=== PATIENT | male | born 1965 | race Caucasian/White ===

== ENCOUNTER 2020-05-12 13:12 | Outpatient (CLI) | payer OTHER, SELFPAY ==
--- NOTE | 2020-05-12 13:17 | MM_ITS ---
WS: [id number] DIAGNOSTIC BILATERAL DIGITAL MAMMOGRAM WITH CAD Bilateral breast ultrasound. Limited. HISTORY: 2 LUMPS RT BREAST;1 LUMP LT BREAST COMPARISON: None available. TECHNIQUE: Bilateral craniocaudad, mediolateral oblique, and mediolateral views are submitted. Spot c ompression RIGHT MLO and LEFT MLO. Computer aided detection utilized. Breast composition: The breasts are almost entirely fatty. No evidence for gynecomastia. There are ve ry small superficial nodules in the upper outer quadrant of the RIGHT breast corresponding to one of the palpable markers. Within the medial RIGHT breast there is no abnormality corresponding to the pal pable marker. No abnormality corresponding to the LEFT breast marker. No lymph nodes. Bilateral breast ultrasound, limited. RIGHT breast: No ultrasound abnormality at 4:00, 2 cm from the nipple. In the RIGHT breast at 8:00 i s a hyperechoic nodule consistent with a lipoma measuring 1.5 x 1.5 x 0.8 cm. LEFT breast: No abnormality at 5:00 corresponding to the area of interest or palpable abnormality. MM/[place] [id number] IMPRESSION: BI-RADS: 2-Benign FOLLOW UP: See Report No suspicious findings are evident. LACK OF RADIOGRAPHIC EVIDENCE OF MALIGNANCY SHOULD NOT DELAY BIOPSY IF A CLINIC ALLY SUSPICIOUS MASS IS PRESENT.
== END 2020-05-12 13:13 | disposition home or self-care (01) ==
LOC: RADSHAW 13:16
PROVIDERS: Family Provider Family Medicine; PCP Family Medicine; Visit Provider Family Medicine
DX: N63.13 Unspecified lump in the right breast, lower outer quadrant (principal); N63.20 Unspecified lump in the left breast, unspecified quadrant
CPT/HCPCS: 76642; 77066

== ENCOUNTER → 2020-07-28 12:00 | Outpatient (BNVA) | payer OTHER, SELFPAY | PROVIDERS: Family Provider Family Medicine; PCP Family Medicine; Visit Provider Surgery | DX: Z01.818 Encounter for other preprocedural examination (principal); Z20.822 Contact with and (suspected) exposure to COVID-19 | CPT/HCPCS: 87635 ==

== ENCOUNTER 2020-08-02 06:45 | Day surgery (SDC) | payer OTHER, SELFPAY ==
[2020-07-31 09:59] VITALS: BMI 34.8
--- NOTE | 2020-08-02 06:58 | ANES.PREANE2 ---
Pre-Anesthetic Assessment Pre-Anesthetic Assessment: Height/Weight: Height 1.8 m Weight 113.398 kg Proposed Procedure: Operation Date: 08/02/20 08:00 Proposed Procedures p EGD/colon 07856 [id number] Z79.899 K62.5(Not Applicable) - Roberto Carlos Fair MD s Colonoscopy(Not Applicable) - Roberto Carlos Fair MD Was Beta Woodrow taken within 24 hours: N/A Was Clonidine taken within 24 hours: N/A Social: Social History: No alcohol and No tobacco Exam: Pre-Anes Outpt Exam: alert, oriented x 3, clear to auscultation bilaterally and regular rate & rhythm Airway: Submandibular: WNL Cervical ROM: WNL MP: 2 Dentition: Full CV/HEM: CV/HEM: HTN GI: GI: GERD Anesthetic Plan: ASA status: 2 Anesthesia: MAC Risk of > 500 ml blood loss (7ml/kg in children): No Data Anesthesia Cardiac Studies: No Data to Display
[2020-08-02] MEDS: sodium chloride 0.9% 1,000 ML 30 ML IV (07:31)
[2020-08-02 07:38] VITALS: BP 126/80; RESP 18; TEMP 36.1; O2SAT 95
--- NOTE | 2020-08-02 07:54 | P.HP_ITS ---
Same Day Surgery H&P Indication for Procedure/HPI DATE OF PROCEDURE: August 02, 2020 CHIEF COMPLAINT/INDICATIONFOR SURGICAL PROCEDURE: Blood in stool PREOP DIAGNOSIS: Bleeding per rectum PLANNED PROCEDRUE: Operation Date: 08/02/20 08:00 Proposed Procedures p EGD/colon 33212 [id number] Z79.899 K62.5(Not Applicable) - Roberto Carlos Fair MD s Colonoscopy(Not Applicable) - Roberto Carlos Fair MD This is a pleasant 55 years old gentleman presents with history of intermittent bleeding per rectum, patient does have also persistent acid reflux and has been on PPI therapy for the past 2 years or so, never had endoscopies before never had a colonoscopy before. Denies history of weight loss or colon cancer. Patient is referred to me for further evaluation and he did mention to me that he has other spots on his breast and torso that has been tender every now and then. Interim history 08/02/2020 Patient comes today for EGD and colonoscopy ROS All systems have been reviewed negative except as per the above or per problem list Medications/Allergies* Home Medications Medication Instructions Recorded Confirmed Type cholecalciferol (vitamin D3) 25 25 mcg PO DAILY 06/12/20 08/02/20 History mcg (1,000 unit) capsule lisinopril 10 mg tablet 5 mg PO DAILY tab 06/12/20 08/02/20 History omeprazole 40 mg capsule,delayed 40 mg PO DAILY 06/12/20 08/02/20 History release Allergies/Adverse Reactions Allergy/AdvReac Type Severity Reaction Status Date / Time No Known Allergies Allergy Verified 08/02/20 07:58 Current Medications: Generic Name Dose Route Start Last Admin Trade Name Nickq PRN Reason Stop Dose Admin Sodium Chloride 1,000 mls @ 30 mls/hr 08/02/20 07:15 08/02/20 07:31 Sodium Chloride 0.9% IV 08/03/20 07:14 30 mls/hr .Q24H PERLA Administration Pertinent Exam Findings alert, oriented x 3, clear to auscultation bilaterally, regular rate & rhythm and procedure specific exam findings (Abdominal examination nontender nondistended soft with a BMI of 35) Recommendations Surgery/Procedure today (EGD and colonoscopy) Other Plans: Plan of care; After thorough history and physical examination and reviewing the chart, plan to perform a diagnostic esophagogastroduodenoscopy and diagnostic colonoscopy with possible biopsy and possible polypectomy. I discussed with the patient in detail the risks,benefits,alternatives and indications.The risk of aspiration, bleeding, soft tissue injury, perforation of the stomach/esophagus/colon and other potential concomitant complications were explained to the patient in details also the potential need for Thoracotomy and or Laproscoy/Laparotomy to repair any related complications including but not limited to colectomy and or Closotomy. The patient understood this well and did agree to proceed. Rationale was carefully and clearly discussed with the patient.Appropriate informed consent have been reviewed and signed Verbal and written Instructions were given to the patient for colonoscopy prep Coding Level of Care Code Acute Streetcar Dispatcher for Ej Ortega
[2020-08-02 09:02] VITALS: BP 99/72; PULSE 80; RESP 16; TEMP 36.2; O2SAT 95
[2020-08-02 09:12] VITALS: BP 108/79; PULSE 68; RESP 18; O2SAT 97
[2020-08-02 09:20] VITALS: BP 120/80; PULSE 65; RESP 18; TEMP 36; O2SAT 96
--- NOTE | 2020-08-02 13:57 | ANE.PACU2 ---
Inpatient post-anesthesia follow up: Airway intact: Yes Vital signs: Temperature 96.8 F Pulse Rate 65 Respiratory Rate 18 Blood Pressure 120/80 Pulse Oximetry 96 Oxygen Delivery Me thod Room Air Oxygen Flow Rate 2 Fraction of Inspir ed Oxygen Hydration adequate: Yes Nausea and vomiting: No Pain level: 1 Mental status: Baseline
== END 2020-08-02 09:50 | disposition home or self-care (01) ==
PROVIDERS: PCP Family Medicine; Visit Provider Surgery
PROC: 0DJ08ZZ Inspection of Upper Intestinal Tract, Via Natural or Artificial Opening Endoscopic (ICD-10-PCS; CPT 43235; principal; 2020-08-02 08:00)
PROC: 0DJD8ZZ Inspection of Lower Intestinal Tract, Via Natural or Artificial Opening Endoscopic (ICD-10-PCS; CPT 45378; 2020-08-02 08:00)
DX: K62.5 Hemorrhage of anus and rectum (principal); D12.2 Benign neoplasm of ascending colon; D12.4 Benign neoplasm of descending colon; D12.5 Benign neoplasm of sigmoid colon; D12.3 Benign neoplasm of transverse colon; K31.7 Polyp of stomach and duodenum; K21.9 Gastro-esophageal reflux disease without esophagitis; K22.70 Barrett's esophagus without dysplasia; I10 Essential (primary) hypertension
CPT/HCPCS: 43239; 45380; 45385; 88305; 96360; 96361; J2704; J7030

== ENCOUNTER 2021-03-03 12:41 | Emergency (ER) | payer OTHER, SELFPAY ==
[2021-03-03 13:02] VITALS: BP 166/90; PULSE 114; RESP 16; TEMP 38.8; O2SAT 91
--- NOTE | 2021-03-03 13:56 | XRR_ITS ---
PROCEDURE INFORMATION: Exam: XR Chest Exam date and time: 03/03/2021 1:56 PM Age: 56 years old Clinical indication: Shortness of breath; Additional info: Sob/cough TECHNIQUE: Imaging protocol: XR of the chest. Views: 1 view. COMPARISON: CT abdomen pelvis w con* [id number] 09/19/2017 5:20 PM FINDINGS: Lungs: Patchy bilateral airspace infiltrates. Pleural spaces: Unremarkable. No pleural effusion. No pneumothorax. Heart/Mediastinum: Unremarkable. No cardiomegaly. Bones/joints: Unremarkable. XR/XR chest 1V portable [id number] IMPRESSION: Patchy bilateral airspace infiltrates.
--- NOTE | 2021-03-03 14:30 | ED_ITS ---
HPI - COVID General: Chief Complaint: COVID symptoms Stated Complaint: Really hard time breathing with weakness Time Seen by Provider: 03/03/21 14:27 Triage information: Has fever, cough or shortness of breath . Exposure to COVID + person last 14 days History of Present Illness: HPI Narrative: 56-year-old male presents emergency room short of breath the last several days tested positive for Covid and was wanting to be scheduled for monoclonal antibodies. Myalgias diarrhea mild anosmia MD complaint: known COVID positive Prior testing date: 02/28/21 COVID 19 common symptoms: positive fever(s), chills, cough, non-productive cough, dyspnea, fatigue, body aches, headache(s), loss of sense of smell and/or taste, throat pain, nasal congestion and chest tightness; negative nausea, vomiting or diarrhea COVID 19 other sytmptoms: positive chest pressure and chest pain Onset (ago): day(s) (6) Severity: moderate Treatment prior to arrival: acetaminophen COVID Results: SARS-CoV-2 RNA (RT-PCR) Not detected (NOT DETECTED) 07/28/20 12:00 07/28/20 Review of Systems Const: Reports: fever(s), chills, body aches and fatigue ENMT: Reports: throat pain and nasal congestion Card: Reports: chest pain Resp: Reports: dyspnea and non-productive cough GI: Denies: abdominal pain, nausea, vomiting, hematemesis, coffee ground emesis, diarrhea, constipation, bloating, hematochezia or melena : Denies: flank pain, dysuria, urinary frequency or urinary urgency Skin/Breast: Denies: rash or pruritus Neuro: Reports: headache(s) PFSH ED PFSH: Medical History Adenomatous duodenal polyp Bleeding per rectum Colon polyps Esophagitis GERD (gastroesophageal reflux disease) HTN (hypertension) Surgical History History of appendectomy History of back surgery History of nasal surgery Previous back surgery Family History Grandfather IPF (idiopathic pulmonary fibrosis) Social History Smoking and tobacco status: never smoked Alcohol intake: never Marital status: Physical Exam Const: COMMON NORMALS: no acute distress GENERAL APPEARANCE: cooperative ORIENTATION/CONSCIOUSNESS: Yes awake, Yes oriented to person, Yes oriented to place and Yes oriented to time HENMT: COMMON NORMALS: normocephalic, atraumatic and hearing grossly normal bilaterally HEAD & SCALP: normocephalic and atraumatic Neck/C-Spine: COMMON NORMALS: no JVD Resp: AUSCULTATION: crackles and wheezes Cardio: COMMON NORMALS: no JVD, regular rate, regular rhythm and No murmurs present (Cardio) RATE: regular rate RHYTHM: regular rhythm GI: COMMON NORMALS: Soft to palpation and No hepatosplenomegaly present AUSCULTATION: Yes normoactive bowel sounds PALPATION: Yes Soft to palpation, No Tenderness to palpation present (GI), No Guarding due to palpation present (GI) and Yes No hepatosplenomegaly present Extremity: COMMON NORMALS: normal to inspection, capillary refill normal, no clubbing, cyanosis or edema, no calf tenderness and no pedal edema Neuro: SENSORIUM/ORIENTATION: Yes oriented to person, Yes oriented to place and Yes oriented to time Skin: COMMON NORMALS: no rashes or lesions noted GENERAL SKIN EXAM: no rashes or lesions noted Course Vital Signs: Vital signs: Vital Signs Temperature 99.4 F 03/03/21 16:41 Pulse Rate 93 03/03/21 16:41 Respiratory Rate 20 H 03/03/21 16:41 Blood Pressure 134/94 03/03/21 16:41 Pulse Oximetry 95 03/03/21 16:41 MDM - COVID MDM Narrative Medical decision making narrative: Patient tolerating well initially had a fever resolved improved with acetaminophen. Sats remained good at time of discharge 95% room air discharge home scheduled for outpatient monoclonal antibodies Lab Data Result diagrams: 03/03/21 15:05 03/03/21 15:05 Labs: Lab Results 03/03/21 03/03/21 03/03/21 15:05 15:05 15:05 WBC 7.7 10^3/uL 10^3/uL (4.0-10.0) RBC 5.20 10^6/uL 10^6/uL (4.1-5.3) Hgb 15.4 g/dL g/dL (11.7-16.6) Hct 45.8 % % (42.0-52.0) MCV 88.1 fl fl (80-94) MCH 29.6 pg pg (28.0-34.0) MCHC 33.6 g/dL g/dL (30.0-36.0) RDW 12.5 % % (12.1-15.1) Plt Count 249 10^3/cmm 10^3/cmm (130-400) MPV 9.6 fL fL (7.4-10.4) Neut % (Auto) 83.2 % % Lymph % (Auto) 9.9 % % [place] % (Auto) 5.8 % % Eos % (Auto) 0.3 % % Baso % (Auto) 0.3 % % Neut # (Auto) 6.37 10^3/uL 10^3/uL (1.8-7.7) Lymph # (Auto) 0.8 10^3/uL 10^3/uL (0.8-4.8) [place] # (Auto) 0.4 10^3/uL 10^3/uL (0.2-0.9) Eos # (Auto) 0.0 10^3/uL 10^3/uL (0.0-0.8) Baso # (Auto) 0.0 10^3/uL 10^3/uL (0.0-0.1) Nucleated RBC % (auto) 0 % % Nucleated RBCs # 0.0 /100WBC /100WBC D-Dimer 1.31 ug/mIFEU H ug/mIFEU (0-0.59) Sodium 137 mmol/L mmol/L (136-145) Potassium 4.3 mmol/L mmol/L (3.5-5.1) Chloride 100 mmol/L mmol/L (98-107) Carbon Dioxide 20 mmol/L L mmol/L (22-29) Anion Gap 21.3 H (5-19) BUN 14 mg/dL mg/dL (6-20) Creatinine 0.9 mg/dL mg/dL (0.7-1.2) GFR Calculation 87.0 mL/min L mL/min (90-130) Glucose 97 mg/dL mg/dL (65-115) Calculated Osmolality 284 mOsm/kg L mOsm/kg (285-295) Calcium 8.5 mg/dL mg/dL (8.5-10.5) Total Bilirubin 0.7 mg/dL mg/dL (0.15-1.2) AST 21 U/L U/L (0-40) ALT 15 U/L U/L (0-41) Alkaline Phosphatase 73 IU/L IU/L (40-130) C-Reactive Protein 66.3 mg/L H mg/L (0.0-4.9) Total Protein 7.2 g/dL g/dL (6.6-8.7) Albumin 3.9 g/dL g/dL (3.5-5.2) Globulin 3.3 g/dL g/dL (1.3-4.6) Procalcitonin 0.07 ng/mL ng/mL (0-0.5) COVID Results: SARS-CoV-2 RNA (RT-PCR) Not detected (NOT DETECTED) 07/28/20 12:00 07/28/20 Discharge Plan Discharge Patient Disposition: Home Clinical Impression: COVID-19 Condition: Stable Prescriptions: New albuterol sulfate 90 mcg/actuation HFA aerosol inhaler 2 inh INHALATION Q4H PRN (Reason: shortness of breath or wheezing) Qty: 18 0RF No Action cholecalciferol (vitamin D3) 25 mcg (1,000 unit) capsule 25 mcg PO DAILY 0RF lisinopril 10 mg tablet 5 mg PO DAILY 0RF doxycycline hyclate 100 mg capsule 100 mg PO BID 0RF Rx Instructions: X10 DAYS omeprazole 40 mg capsule,delayed release(DR/EC) 40 mg PO DAILY 0RF benzonatate 100 mg Capsule 200 mg PO TID 10 Days Qty: 60 1RF Decadron 6 mg tablet 6 mg PO DAILY Qty: 4 0RF codeine-guaifenesin 10-100 mg/5 mL Liquid 10 ml PO Q4H PRN (Reason: Cough) 14 Days Qty: 237 0RF Discharge Orders: Discharge ED (Routine); Ordered 03/03/21 Ordered By: Aubrey Cantor Referrals: Chelsie Santillan MD [Primary Care Provider] - Discharge Diet: Usual diet Discharge Activity: Increase activity as tolerated Patient Instructions: Opioid Safety Activity Restrictions/Additional Instructions: Case management will call to make arrangements for her to receive monoclonal antibodies. Monitor your home oxygen saturations with a pulse oximeter given to you today. If oxygen saturations are consistently below 90% while at rest return to the emergency room. Coding Level of Care Code ED Manager Administrative Services for Ej Ortega Exam Comprehensive
[2021-03-03 15:11] VITALS: BP 108/77; RESP 20; O2SAT 93
[2021-03-03 15:15] VITALS: O2SAT 93
[2021-03-03 15:18] LABS: Basophils % 0.3 %; Eosinophils % 0.3 %; Hematocrit 45.8 % (42.0-52.0); Hemoglobin 15.4 g/dL (11.7-16.6); Lymphocytes # 0.8 10^3/uL (0.8-4.8); Lymphocytes % 9.9 %; Mean Corpuscular HGB Conc 33.6 g/dL (30.0-36.0); Mean Corpuscular Hemoglobin 29.6 pg (28.0-34.0); Mean Corpuscular Volume 88.1 fl (80-94); Mean Platelet Volume 9.6 fL (7.4-10.4); Monocytes # 0.4 10^3/uL (0.2-0.9); Monocytes % 5.8 %; Neutrophils # 6.37 10^3/uL (1.8-7.7); Neutrophils % 83.2 %; Nucleated Red Blood Cells % 0 %; Platelet Count 249 10^3/cmm (130-400); Red Cell Distribution Width 12.5 % (12.1-15.1); White Blood Count 7.7 10^3/uL (4.0-10.0)
[2021-03-03] MEDS: acetaminophen 500 mg Tablet 1000 MG PO (15:26)
[2021-03-03 15:45] LABS: D Dimer 1.31 ug/mIFEU (0-0.59)
[2021-03-03 15:49] LABS: Alanine Aminotransferase 15 U/L (0-41); Albumin Level 3.9 g/dL (3.5-5.2); Alkaline Phosphatase 73 IU/L (40-130); Anion Gap 21.3 (5-19); Aspartate Amino Transferase 21 U/L (0-40); Blood Urea Nitrogen 14 mg/dL (6-20); C Reactive Protein 66.3 mg/L (0.0-4.9); Calcium 8.5 mg/dL (8.5-10.5); Carbon Dioxide 20 mmol/L (22-29); Chloride 100 mmol/L (98-107); Globulin 3.3 g/dL (1.3-4.6); Glucose 97 mg/dL (65-115); Osmolality Calculated 284 mOsm/kg (285-295); Potassium 4.3 mmol/L (3.5-5.1); Sodium 137 mmol/L (136-145); Total Bilirubin 0.7 mg/dL (0.15-1.2); Total Protein 7.2 g/dL (6.6-8.7)
[2021-03-03 15:55] LABS: Procalcitonin 0.07 ng/mL (0-0.5)
[2021-03-03 15:58] VITALS: O2SAT 92; O2SAT 94
[2021-03-03 16:41] VITALS: BP 134/94; PULSE 93; RESP 20; TEMP 37.4; O2SAT 95
== END 2021-03-03 16:42 | disposition home or self-care (01) ==
PROVIDERS: Emergency Provider Family Medicine; PCP Family Medicine
DX: U07.1 COVID-19 (principal); I10 Essential (primary) hypertension
CPT/HCPCS: 71045; 80053; 84145; 85025; 85378; 86140; 99283

== ENCOUNTER 2021-03-05 12:50 | Observation (INO) | payer OTHER, SELFPAY ==
[2021-03-05] VITALS (10 sets, daily range): BP systolic 117–145; BP diastolic 60–107; PULSE 71–130; RESP 18–32; TEMP 36.8–37.7; O2SAT 85–100; BMI 29.9
--- NOTE | 2021-03-05 13:17 | XR_ITS ---
WS: [id number] Exam: XR chest 1V portable [id number] Date/Time of Exam: 03/05/2021 1:53 PM Reason For Exam: dyspnea Comparison 03/03/2021. Patchy bilateral groundglass infiltrates are noted bilaterally slightly increased since previous stud y. The lungs are fully inflated. Normal cardiomediastinal silhouette and regional bony elements. XR/XR chest 1V portable [id number] IMPRESSION: 1. Patchy groundglass bilateral pulmonary infiltrates slightly increased since prior study.
--- NOTE | 2021-03-05 13:51 | ED_ITS ---
Documented by User: MARSHALL Duckworth 03/05/21 13:52 HPI - COVID General: Chief Complaint: COVID symptoms Stated Complaint: COVID + O2 85 Time Seen by Provider: 03/05/21 15:33 Triage information: Has fever, cough or shortness of breath . Exposure to COVID + person last 14 days History of Present Illness: HPI Narrative: Patient states that he has had a cough and tested positive for COVID earlier this week. Patient states he cannot get in for the infusion and that is what he is here for. Said he is on day 8 of symptoms and wants to make sure he gets infusion. Patient has been satting in the mid to low 90s on room air. COVID Results: SARS-CoV-2 RNA (RT-PCR) Not detected (NOT DETECTED) 07/28/20 12:00 07/28/20 [facility] PFSH: Medical History Adenomatous duodenal polyp Bleeding per rectum Colon polyps Esophagitis GERD (gastroesophageal reflux disease) Course Vital Signs: Vital signs: Vital Signs Pulse Rate 120 H 03/05/21 15:45 Respiratory Rate 32 H 03/05/21 15:45 Blood Pressure 131/89 03/05/21 15:45 Pulse Oximetry 91 03/05/21 15:45 MDM - COVID MDM Narrative: Medical decision making narrative: Brief history and physical exam was performed as part of the triage process. Due to current ED wait time patient will be placed in waiting room until a room becomes available. Explained to patient he/she will be seen in order of severity. Patient is currently safe to wait in the waiting room until we can get them placed. Patient informed that if condition worsens at any time to please let the commercial front load driver know. Lab Data: Labs: Lab Results 03/05/21 03/05/21 03/05/21 14:55 14:55 14:55 WBC 11.8 10^3/uL H 10 ^3/uL (4.0-10.0) RBC 5.13 10^6/uL 10^6 /uL (4.1-5.3) Hgb 15.0 g/dL g/dL (11.7-16.6) Hct 45.4 % % (42.0-52.0) MCV 88.5 fl fl (80-94) MCH 29.2 pg pg (28.0-34.0) MCHC 33.0 g/dL g/dL (30.0-36.0) RDW 12.4 % % (12.1-15.1) Plt Count 311 10^3/cmm 10^3 /cmm (130-400) MPV 9.7 fL fL (7.4-10.4) Neut % (Auto) 83.4 % % Lymph % (Auto) 10.3 % % [place] % (Auto) 4.3 % % Eos % (Auto) 1.0 % % Baso % (Auto) 0.3 % % Neut # (Auto) 9.82 10^3/uL H 10 ^3/uL (1.8-7.7) Lymph # (Auto) 1.2 10^3/uL 10^3/ uL (0.8-4.8) [place] # (Auto) 0.5 10^3/uL 10^3/ uL (0.2-0.9) Eos # (Auto) 0.1 10^3/uL 10^3/ uL (0.0-0.8) Baso # (Auto) 0.0 10^3/uL 10^3/ uL (0.0-0.1) Nucleated RBC % (a uto) 0 % % Nucleated RBCs # 0.0 /100WBC /100W BC D-Dimer 1.74 ug/mIFEU H u g/mIFEU (0-0.59) Specimen Type Sample Site ABG pH ABG pCO2 ABG pO2 ABG HCO3 ABG Base Excess Osei Test Hematocrit O2 Delivery Device FiO2 Veneer Trimmer ID Sodium 137 mmol/L mmol/L (136-145) Potassium 4.4 mmol/L mmol/L (3.5-5.1) Chloride 99 mmol/L mmol/L (98-107) Carbon Dioxide 21 mmol/L L mmol/ L (22-29) Anion Gap 21.4 H (5-19) BUN 14 mg/dL mg/dL (6-20) Creatinine 0.8 mg/dL mg/dL (0.7-1.2) GFR Calculation 99.6 mL/min mL/mi n (90-130) Glucose 110 mg/dL mg/dL (65-115) Calculated Osmolal ity 285 mOsm/kg mOsm/ kg (285-295) Lactic Acid Calcium 8.7 mg/dL mg/dL (8.5-10.5) Magnesium 1.9 mg/dL mg/dL (1.7-2.3) Total Bilirubin 0.5 mg/dL mg/dL (0.15-1.2) AST 16 U/L U/L (0-40) ALT 13 U/L U/L (0-41) Alkaline Phosphata se 70 IU/L IU/L (40-130) C-Reactive Protein 70.6 mg/L H mg/L (0.0-4.9) Total Protein 6.2 g/dL L g/dL (6.6-8.7) Albumin 3.9 g/dL g/dL (3.5-5.2) Globulin 2.3 g/dL g/dL (1.3-4.6) Procalcitonin 0.08 ng/mL ng/mL (0-0.5) 03/05/21 03/05/21 14:55 15:00 WBC RBC Hgb Hct MCV MCH MCHC RDW Plt Count MPV Neut % (Auto) Lymph % (Auto) [place] % (Auto) Eos % (Auto) Baso % (Auto) Neut # (Auto) Lymph # (Auto) [place] # (Auto) Eos # (Auto) Baso # (Auto) Nucleated RBC % (a uto) Nucleated RBCs # D-Dimer Specimen Type Arterial Sample Site Brachial, right ABG pH 7.50 H (7.35-7.45) ABG pCO2 30.9 mmHg L mmHg (35-45) ABG pO2 66.8 mmHg L mmHg (80.0-100.0) ABG HCO3 24.2 mmol/L mmol/ L (22-26) ABG Base Excess 1.9 mmol/L mmol/L (-2.0-2.0) Osei Test N/a Hematocrit 46.8 % % (42-52) O2 Delivery Device None FiO2 21.0 % % Veneer Trimmer ID Rieri Sodium Potassium Chloride Carbon Dioxide Anion Gap BUN Creatinine GFR Calculation Glucose Calculated Osmolal ity Lactic Acid 1.2 mmol/L mmol/L (0.5-2.2) Calcium Magnesium Total Bilirubin AST ALT Alkaline Phosphata se C-Reactive Protein Total Protein Albumin Globulin Procalcitonin COVID Results: SARS-CoV-2 RNA (RT-PCR) Not detected (NOT DETECTED) 07/28/20 12:00 07/28/20 Discharge Plan Discharge Patient Disposition: Admitted As Inpatient Clinical Impression: COVID, Hypoxemia, 2019 novel coronavirus-infected pneumonia (NCIP) Condition: Stable Coding Level of Care Code ED Backend Developer for [employer] Documented by User: Robert Iqbal MD 03/05/21 17:09 HPI - COVID General: Chief Complaint: COVID symptoms Stated Complaint: COVID + O2 85 Time Seen by Provider: 03/05/21 15:33 History of Present Illness: COVID 19 common symptoms: positive fever(s), chills, non-productive cough, dyspnea, fatigue and body aches; negative nausea, vomiting or diarrhea COVID 19 other sytmptoms: negative chest pain COVID Results: SARS-CoV-2 RNA (RT-PCR) Not detected (NOT DETECTED) 07/28/20 12:00 07/28/20 Review of Systems Const: Reports: fever(s), chills, body aches, fatigue and malaise Eyes: Denies: change in vision ENMT: Denies: mouth pain Card: Denies: chest pain or palpitations Resp: Reports: dyspnea and non-productive cough GI: Denies: abdominal pain, nausea, vomiting or diarrhea : Denies: dysuria Musc: Denies: extremity pain Skin/Breast: Denies: rash or new lesions Neuro: Denies: weakness in extremities Psych: Reports: other (Normal mood) Alexei/Lymph: Denies: easy bruising PFSH ED PFSH: Medical History Adenomatous duodenal polyp Bleeding per rectum Colon polyps Esophagitis GERD (gastroesophageal reflux disease) Physical Exam Const: COMMON NORMALS: alert HENMT: COMMON NORMALS: atraumatic HEAD & SCALP: atraumatic MOUTH: moist mucous membranes abnormal Eye: COMMON NORMALS: EOMs intact bilaterally and conjunctivae normal CONJUNCTIVA: Yes conjunctivae normal Neck/C-Spine: COMMON NORMALS: full ROM and supple Resp: COMMON NORMALS: normal respiratory effort PERCUSSION: other (coarse breath sounds b/l) Cardio: RATE: tachycardic GI: COMMON NORMALS: Soft to palpation and non-tender PALPATION: Yes Soft to palpation Extremity: COMMON NORMALS: full ROM Neuro: SENSORIUM/ORIENTATION: Yes alert MOTOR EXAM: No Abnormal motor strength present and Other motor observations present (no focal motor deficits) Psych: COMMON NORMALS: speech normal SPEECH: Yes normal speech MOOD & AFFECT: Yes euthymic mood Course Vital Signs: Vital signs: Vital Signs Pulse Rate 120 H 03/05/21 15:45 Respiratory Rate 32 H 03/05/21 15:45 Blood Pressure 131/89 03/05/21 15:45 Pulse Oximetry 91 03/05/21 15:45 MDM - COVID MDM Narrative: Medical decision making narrative: She is on 5 L at rest and 94%. On ambulation, patient required more than 10 L to get an O2 of 93%. X- rays consistent with COVID-pneumonia. Appears dry and mildly tachycardiac, will give IVF. No suspicion for bacteria PNA. Patient will be admitted to the hospital for hypoxemia in the setting of covid PNA. Lab Data: Labs: Lab Results 03/05/21 03/05/21 03/05/21 14:55 14:55 14:55 WBC 11.8 10^3/uL H 10 ^3/uL (4.0-10.0) RBC 5.13 10^6/uL 10^6 /uL (4.1-5.3) Hgb 15.0 g/dL g/dL (11.7-16.6) Hct 45.4 % % (42.0-52.0) MCV 88.5 fl fl (80-94) MCH 29.2 pg pg (28.0-34.0) MCHC 33.0 g/dL g/dL (30.0-36.0) RDW 12.4 % % (12.1-15.1) Plt Count 311 10^3/cmm 10^3 /cmm (130-400) MPV 9.7 fL fL (7.4-10.4) Neut % (Auto) 83.4 % % Lymph % (Auto) 10.3 % % [place] % (Auto) 4.3 % % Eos % (Auto) 1.0 % % Baso % (Auto) 0.3 % % Neut # (Auto) 9.82 10^3/uL H 10 ^3/uL (1.8-7.7) Lymph # (Auto) 1.2 10^3/uL 10^3/ uL (0.8-4.8) [place] # (Auto) 0.5 10^3/uL 10^3/ uL (0.2-0.9) Eos # (Auto) 0.1 10^3/uL 10^3/ uL (0.0-0.8) Baso # (Auto) 0.0 10^3/uL 10^3/ uL (0.0-0.1) Nucleated RBC % (a uto) 0 % % Nucleated RBCs # 0.0 /100WBC /100W BC D-Dimer 1.74 ug/mIFEU H u g/mIFEU (0-0.59) Specimen Type Sample Site ABG pH ABG pCO2 ABG pO2 ABG HCO3 ABG Base Excess Osei Test Hematocrit O2 Delivery Device FiO2 Veneer Trimmer ID Sodium 137 mmol/L mmol/L (136-145) Potassium 4.4 mmol/L mmol/L (3.5-5.1) Chloride 99 mmol/L mmol/L (98-107) Carbon Dioxide 21 mmol/L L mmol/ L (22-29) Anion Gap 21.4 H (5-19) BUN 14 mg/dL mg/dL (6-20) Creatinine 0.8 mg/dL mg/dL (0.7-1.2) GFR Calculation 99.6 mL/min mL/mi n (90-130) Glucose 110 mg/dL mg/dL (65-115) Calculated Osmolal ity 285 mOsm/kg mOsm/ kg (285-295) Lactic Acid Calcium 8.7 mg/dL mg/dL (8.5-10.5) Magnesium 1.9 mg/dL mg/dL (1.7-2.3) Total Bilirubin 0.5 mg/dL mg/dL (0.15-1.2) AST 16 U/L U/L (0-40) ALT 13 U/L U/L (0-41) Alkaline Phosphata se 70 IU/L IU/L (40-130) C-Reactive Protein 70.6 mg/L H mg/L (0.0-4.9) Total Protein 6.2 g/dL L g/dL (6.6-8.7) Albumin 3.9 g/dL g/dL (3.5-5.2) Globulin 2.3 g/dL g/dL (1.3-4.6) Procalcitonin 0.08 ng/mL ng/mL (0-0.5) 03/05/21 03/05/21 14:55 15:00 WBC RBC Hgb Hct MCV MCH MCHC RDW Plt Count MPV Neut % (Auto) Lymph % (Auto) [place] % (Auto) Eos % (Auto) Baso % (Auto) Neut # (Auto) Lymph # (Auto) [place] # (Auto) Eos # (Auto) Baso # (Auto) Nucleated RBC % (a uto) Nucleated RBCs # D-Dimer Specimen Type Arterial Sample Site Brachial, right ABG pH 7.50 H (7.35-7.45) ABG pCO2 30.9 mmHg L mmHg (35-45) ABG pO2 66.8 mmHg L mmHg (80.0-100.0) ABG HCO3 24.2 mmol/L mmol/ L (22-26) ABG Base Excess 1.9 mmol/L mmol/L (-2.0-2.0) Osei Test N/a Hematocrit 46.8 % % (42-52) O2 Delivery Device None FiO2 21.0 % % Veneer Trimmer ID Rieri Sodium Potassium Chloride Carbon Dioxide Anion Gap BUN Creatinine GFR Calculation Glucose Calculated Osmolal ity Lactic Acid 1.2 mmol/L mmol/L (0.5-2.2) Calcium Magnesium Total Bilirubin AST ALT Alkaline Phosphata se C-Reactive Protein Total Protein Albumin Globulin Procalcitonin Imaging Data: Other Imaging: My impression: [address] [id number] ReportSigned Patient: Sudhir Torres #: [id number]: [id number]#:[id number]/Sex: 56 / MADM Date: 03/05/21Loc: ERRoom/Bed:Attending Dr: Ordering Provider/Ordering MD: Aubrey Cantor DO Date of Service: 03/05/21 Procedure(s): XR chest 1V portable [id number] Accession Number(s): [id number] Report Number: [id number] WS: [id number] Exam: XR chest 1V portable [id number] Date/Time of Exam: 03/05/2021 1:53 PM Reason For Exam: dyspnea Comparison 03/03/2021. Patchy bilateral groundglass infiltrates are noted bilaterally slightly increased since previous study. The lungs are fully inflated. Normal cardiomediastinal silhouette and regional bony elements. XR/XR chest 1V portable [id number] IMPRESSION: 1. Patchy groundglass bilateral pulmonary infiltrates slightly increased since prior study. 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
[2021-03-05 15:12] LABS: ABG PCO2 30.9 mmHg (35-45); Arterial Blood Gas Hematocrit 46.8 % (42-52); Base Excess ABG 1.9 mmol/L (-2.0-2.0); Blood Gas Sample Site Brachial, right; Blood Gas Sample Type Arterial; HCO3 ABG 24.2 mmol/L (22-26); PO2 ABG 66.8 mmHg (80.0-100.0)
[2021-03-05 15:18] LABS: Basophils % 0.3 %; Eosinophils # 0.1 10^3/uL (0.0-0.8); Hematocrit 45.4 % (42.0-52.0); Lymphocytes # 1.2 10^3/uL (0.8-4.8); Lymphocytes % 10.3 %; Mean Corpuscular Hemoglobin 29.2 pg (28.0-34.0); Mean Corpuscular Volume 88.5 fl (80-94); Mean Platelet Volume 9.7 fL (7.4-10.4); Monocytes # 0.5 10^3/uL (0.2-0.9); Monocytes % 4.3 %; Neutrophils # 9.82 10^3/uL (1.8-7.7); Neutrophils % 83.4 %; Nucleated Red Blood Cells % 0 %; Platelet Count 311 10^3/cmm (130-400); Red Blood Count 5.13 10^6/uL (4.1-5.3); Red Cell Distribution Width 12.4 % (12.1-15.1); White Blood Count 11.8 10^3/uL (4.0-10.0)
[2021-03-05 15:25] LABS: Lactic Sepsis W/Reflex 1.2 mmol/L (0.5-2.2)
[2021-03-05 15:27] LABS: Alanine Aminotransferase 13 U/L (0-41); Albumin Level 3.9 g/dL (3.5-5.2); Alkaline Phosphatase 70 IU/L (40-130); Anion Gap 21.4 (5-19); Aspartate Amino Transferase 16 U/L (0-40); Blood Urea Nitrogen 14 mg/dL (6-20); C Reactive Protein 70.6 mg/L (0.0-4.9); Calcium 8.7 mg/dL (8.5-10.5); Carbon Dioxide 21 mmol/L (22-29); Chloride 99 mmol/L (98-107); Globulin 2.3 g/dL (1.3-4.6); Glomerular Filtration Rate 99.6 mL/min (90-130); Glucose 110 mg/dL (65-115); Magnesium 1.9 mg/dL (1.7-2.3); Osmolality Calculated 285 mOsm/kg (285-295); Potassium 4.4 mmol/L (3.5-5.1); Sodium 137 mmol/L (136-145); Total Bilirubin 0.5 mg/dL (0.15-1.2); Total Protein 6.2 g/dL (6.6-8.7)
[2021-03-05 15:32] LABS: Procalcitonin 0.08 ng/mL (0-0.5)
[2021-03-05 16:13] LABS: D Dimer 1.74 ug/mIFEU (0-0.59)
--- NOTE | 2021-03-05 16:38 | CTR_ITS ---
PROCEDURE INFORMATION: Exam: CTA Chest With Contrast Exam date and time: 03/05/2021 4:38 PM Age: 56 years old Clinical indication: Cough and shortness of breath and other: Low o2; Patient HX: Covid+; Additional info: Eval for pe TECHNIQUE: Imaging protocol: Computed tomographic angiography of the chest with contrast. 3D rendering (Not supervised by radiologist): MIP and/or 3D reconstructed images were created by the technologist. Total images: 949 Radiation optimization: All CT scans at this facility use at least one of these dose optimization techniques: automated exposure control; mA and/or kV adjustment per patient size (includes targeted exams where dose is matched to clinical indication); or iterative reconstruction. Contrast material: OMNI 350; Contrast volume: 76 ml; Contrast route: INTRAVENOUS (IV); COMPARISON: CR (CHEST, ) 03/03/2021 2:41 PM RADIATION DOSE METRICS: Total DLP (mGy-cm): 615.51 FINDINGS: Pulmonary arteries: No visible evidence of pulmonary embolism/pulmonary arterial thrombus. Aorta: The thoracic aorta is nonaneurysmal. No visible intimal flap or dissection. Minimal arteriosclerosis. Lungs: Bilateral, predominantly peripheral, patches of ground-glass interstitial lung disease opacification consistent with active interstitial pneumonitis. Overall constellation of findings would be consistent with Covid-19 pneumonitis. Pleural spaces: No pneumothorax. No pleural effusion. Heart: No cardiomegaly. No visible pericardial effusion. Mild coronary artery disease. Lymph nodes: Few marginally prominent mediastinal hilar lymph nodes most likely reactive in nature. No axillary lymphadenopathy identified. Liver: Few small simple appearing hepatic cysts. Adrenal glands: Small right adrenal adenoma measuring 18 mm in diameter. No follow-up recommended. Left adrenal gland unremarkable. Bones/joints: No visible active or acute osseous pathology. Mild scoliotic curvature of the spine. Soft tissues: Unremarkable. CT/CT angio chest PE protcl [id number] IMPRESSION: 1. No visible evidence of pulmonary embolism/pulmonary arterial thrombus. 2. Bilateral, predominantly peripheral, patches of ground-glass interstitial lung disease opacification consistent with active interstitial pneumonitis. Overall constellation of findings would be consistent with Covid-19 pneumonitis.
[2021-03-05] MEDS: dexamethasone 10 mg/mL INJ 6 MG IVP (17:27)
[2021-03-05] MEDS: sodium chloride 0.9% 1,000 ML 999 ML IV (17:27)
--- NOTE | 2021-03-05 17:46 | PM.HP ---
Providers/Chief Complaint Primary Care Provider: Chelsie Santillan MD Chief Complaint: COVID + O2 85 History of Present Illness Very pleasant 56-year-old gentleman diagnosed with COVID-19 on Friday returns to the hospital due to progressive shortness of breath, especially dyspnea on exertion, severe bouts of cough, with other symptoms that include subjective fevers, chills, headache. He has history of pneumonia, but denies chronic lung disease that he knows of. In ER he is requiring 5 L of oxygen via nasal cannula. Patchy groundglass bilateral pulmonary infiltrates slightly increased since prior x-ray. Review of Systems Const: Reports: fever(s), chills, body aches and malaise Eyes: Denies: change in vision or eye redness ENMT: Denies: throat pain, oral sores or ear or mastoid pain Card: Denies: chest pain, edema, pre-syncope or dyspnea on exertion Resp: Reports: dyspnea and non-productive cough; Denies: change in phlegm color or hemoptysis GI: Reports: nausea; Denies: abdominal pain, vomiting, constipation, hematochezia or melena : Denies: flank pain, difficulty urinating, urinary frequency or hematuria Musc: Denies: back pain, joint swelling or joint redness Skin/Breast: Denies: rash, sores or new lesions Neuro: Reports: headache(s); Denies: numbness in extremities, weakness in extremities, dizziness, confusion or seizure-like activity Endo: Denies: polyuria or polydipsia Alexei/Lymph: Denies: easy bleeding or purpura All/Imm: Denies: urticaria, throat swelling or tongue swelling Medications/Allergies Home Medications Medication Instructions Recorded Confirmed Last Taken Type cholecalciferol (vitamin D3) 25 25 mcg PO DAILY 06/12/20 01/27/21 1 Day Ago History mcg (1,000 unit) capsule ~08/01/20 lisinopril 10 mg tablet 5 mg PO DAILY tab 06/12/20 01/27/21 1 Day Ago History ~08/01/20 albuterol sulfate 2 inh INHALATION Q4H PRN #18 gm 03/03/21 Unknown Rx doxycycline hyclate 100 mg PO BID 03/05/21 03/05/21 03/05/21 History omeprazole 40 mg PO DAILY 03/05/21 03/05/21 03/05/21 History Allergies Allergy/AdvReac Type Severity Reaction Status Date / Time No Known Allergies Allergy Verified 03/05/21 17:55 PFSH Acute PFSH: Medical History (Updated 03/05/21 @ 17:49 by Arnol Del Cid MD) Adenomatous duodenal polyp Bleeding per rectum Colon polyps Esophagitis GERD (gastroesophageal reflux disease) HTN (hypertension) Surgical History (Updated 03/05/21 @ 17:49 by Arnol Del Cid MD) History of appendectomy History of back surgery History of nasal surgery Previous back surgery Family History Grandfather IPF (idiopathic pulmonary fibrosis) Social History Smoking and tobacco status: never smoked Alcohol intake: never Substance/Drug Use: never Marital status: Vitals/I&O/Wt Last Vital Signs Temp 99.9 F H 03/05/21 17:30 Pulse 109 H 03/05/21 17:30 Resp 20 H 03/05/21 17:30 BP 129/107 03/05/21 17:30 Pulse Ox 96 03/05/21 17:30 Weight last 48 hrs Weight 97.522 kg Physical Exam Const: COMMON NORMALS: no acute distress, patient oriented x3 and alert GENERAL APPEARANCE: ill appearing; not comfortable ORIENTATION/CONSCIOUSNESS: Yes awake OTHER: Coughing HENMT: COMMON NORMALS: oropharynx normal Neck/C-Spine: COMMON NORMALS: no JVD Resp: COMMON NORMALS: normal respiratory effort and clear to auscultation bilaterally AUSCULTATION: clear to auscultation bilaterally OTHER: Shallow breaths due to cough Cardio: COMMON NORMALS: no JVD, regular rhythm, S1 normal heart sound present, S2 normal heart sound present and No murmurs present (Cardio) RHYTHM: regular rhythm HEART SOUNDS: S1 normal heart sound present and S2 normal heart sound present GI: COMMON NORMALS: Normal to inspection, nondistended, normoactive bowel sounds present, Soft to palpation and non-tender PALPATION: Yes Soft to palpation Extremity: COMMON NORMALS: no joint enlargement and no pedal edema Neuro: COMMON NORMALS: patient oriented x3 and moves all extremities Skin: COMMON NORMALS: no rashes or lesions noted GENERAL SKIN EXAM: no rashes or lesions noted Data : 03/05/21 14:55 03/05/21 14:55 A&P Assessment and plan (1) COVID-19: Severe COVID-19 with hypoxia requiring oxygen supplementation, with malaise, fevers, chills, at the moment no suggestion of superimposed bacterial infection although does have mild leukocytosis. CTA is pending. Follow-up. Continue oxygen support, Decadron, remdesivir, cough suppressants given bouts of severe cough, and other supportive care. Lovenox VT prophylaxis. Follow-up oxygenation, D-dimer, CRP. Status: Acute (2) Hypoxemia: As above. Status: Acute Attestations Medical Necessity Statement*: Placed in observation for initiation of treatment for severe COVID-19 requiring supplemental oxygen, supportive care with oxygen support, antitussives due to severe bouts of cough. Coding Level of Care Code Acute Student Driving Instructor for Ej Ortega Diagnoses COVID-19 U07.1 Hypoxemia R09.02
[2021-03-05] MEDS: iohexol 350 mg/mL 100 mL Btl IV (17:48)
[2021-03-05] MEDS: remdesivir 200 MG in sodium chloride 0.9% (100 ml) 60 ML 100 MG IV (18:13)
[2021-03-05] MEDS: enoxaparin 40 mg/0.4 mL Syringe SUBCUT (22:03)
[2021-03-05] MEDS: benzonatate 100 mg Capsule 200 MG PO (22:03)
[2021-03-05] MEDS: albuterol 8 gm MDI 2 PUFF INHALATION (22:32)
[2021-03-06] VITALS (8 sets, daily range): BP systolic 119–144; BP diastolic 70–93; PULSE 68–101; RESP 16–22; TEMP 36.9–37.1; O2SAT 85–98
[2021-03-06 06:47] LABS: Basophils % 0.2 %; D Dimer 1.47 ug/mIFEU (0-0.59); Hematocrit 41.4 % (42.0-52.0); Hemoglobin 13.8 g/dL (11.7-16.6); Lymphocytes % 16.9 %; Mean Corpuscular HGB Conc 33.3 g/dL (30.0-36.0); Mean Corpuscular Hemoglobin 29.5 pg (28.0-34.0); Mean Corpuscular Volume 88.5 fl (80-94); Mean Platelet Volume 10.1 fL (7.4-10.4); Monocytes # 0.3 10^3/uL (0.2-0.9); Monocytes % 5.4 %; Neutrophils # 4.73 10^3/uL (1.8-7.7); Neutrophils % 76.8 %; Nucleated Red Blood Cells % 0 %; Platelet Count 293 10^3/cmm (130-400); Red Blood Count 4.68 10^6/uL (4.1-5.3); Red Cell Distribution Width 12.3 % (12.1-15.1); White Blood Count 6.2 10^3/uL (4.0-10.0)
[2021-03-06 06:53] LABS: Alanine Aminotransferase 11 U/L (0-41); Albumin Level 3.7 g/dL (3.5-5.2); Alkaline Phosphatase 63 IU/L (40-130); Anion Gap 19.2 (5-19); Aspartate Amino Transferase 13 U/L (0-40); Blood Urea Nitrogen 16 mg/dL (6-20); Calcium 8.5 mg/dL (8.5-10.5); Carbon Dioxide 21 mmol/L (22-29); Chloride 102 mmol/L (98-107); Globulin 2.1 g/dL (1.3-4.6); Glomerular Filtration Rate 138.9 mL/min (90-130); Glucose 124 mg/dL (65-115); Osmolality Calculated 289 mOsm/kg (285-295); Potassium 4.2 mmol/L (3.5-5.1); Sodium 138 mmol/L (136-145); Total Bilirubin 0.5 mg/dL (0.15-1.2); Total Protein 5.8 g/dL (6.6-8.7)
[2021-03-06 06:58] LABS: C Reactive Protein 77.1 mg/L (0.0-4.9)
[2021-03-06] MEDS: benzonatate 100 mg Capsule 200 MG PO ×2 (10:56→15:32)
[2021-03-06] MEDS: pantoprazole DR 40 mg Tablet PO (10:56)
[2021-03-06] MEDS: guaiFENesin-codeine UDC 10 mL PO ×3 (11:02→20:03)
--- NOTE | 2021-03-06 14:45 | P.DS_ITS ---
Discharge Providers Date of Admission: 03/05/21 17:05 Date of Discharge: March 06, 2021 Attending Provider at Admission: Arnol Del Cid Attending Provider at Discharge: Arnol Del Cid Primary Care Provider: Chelsie Santillan MD Diagnoses at Discharge Discharge Diagnosis (1) COVID-19: Status: Acute (2) Hypoxemia: Status: Acute Reason for Visit Reason for Visit: COVID + O2 85 Hospital Course Hospital Course Pleasant 56-year-old gentleman was placed in observation hospital due to progressive dyspnea, severe bouts of cough, with preceding symptoms with onset about 8 days earlier. Noted to Require oxygen on presentation wears not normally on oxygen. Received a dose of Decadron, remdesivir. Due to bouts of severe bothersome cough started on intensive antitussive regimen. CT angiogram chest without evidence of PE, with interstitial pneumonitis suggestive of COVID-19. His oxygenation remained good, and today he is feeling better, he is doing well on 2 L nasal cannula. D-dimer with mild elevation which is improving. 1.47 most recent. As he is feeling better, doing well on minimal oxygen support, he feels comfortable returning home to continue his recovery there with supplemental oxygen arranged at [facility], [place]. He knows to seek medical attention in case of any worsening in his condition or concerning symptoms. Physical Exam Const: COMMON NORMALS: no acute distress, patient oriented x3 and alert GENERAL APPEARANCE: cooperative ORIENTATION/CONSCIOUSNESS: Yes awake OTHER: intermittent cough with deep inspiration HENMT: COMMON NORMALS: oropharynx normal Neck/C-Spine: COMMON NORMALS: no JVD Resp: COMMON NORMALS: normal respiratory effort and clear to auscultation bilaterally AUSCULTATION: clear to auscultation bilaterally OTHER: Shallow breaths to avoid triggering cough. Cardio: COMMON NORMALS: no JVD, regular rhythm, S1 normal heart sound present, S2 normal heart sound present and No murmurs present (Cardio) RHYTHM: regular rhythm HEART SOUNDS: S1 normal heart sound present and S2 normal heart sound present GI: COMMON NORMALS: Normal to inspection, nondistended, normoactive bowel sounds present, Soft to palpation and non-tender PALPATION: Yes Soft to palpation Extremity: COMMON NORMALS: no joint enlargement and no pedal edema Neuro: COMMON NORMALS: patient oriented x3 and moves all extremities SENSORIUM/ORIENTATION: Yes alert Skin: COMMON NORMALS: no rashes or lesions noted GENERAL SKIN EXAM: no rashes or lesions noted Discharge Data Data Completed and Pending: Completed Studies During Hospitalization Category Date Time Status CT angio chest PE protcl [id number] Urge nt Cat Scan 03/05/21 16:38 Completed XR chest 1V sage ble [id number] Stat Exams 03/05/21 13:17 Completed Pending at discharge Category Date Time Status Complete Blood Co unt w/Auto AM LABS Lab 03/07/21 04:00 Ordered Complete Blood Co unt w/Auto AM LABS Lab 03/08/21 04:00 Ordered Comprehensive Met abolic Panel AM LA BS Lab 03/07/21 04:00 Ordered Comprehensive Met abolic Panel AM LA BS Lab 03/08/21 04:00 Ordered Labs from last 24 hours 03/06/21 03/06/21 03/06/21 05:57 05:57 05:57 WBC 6.2 RBC 4.68 Hgb 13.8 Hct 41.4 L MCV 88.5 MCH 29.5 MCHC 33.3 RDW 12.3 Plt Count 293 MPV 10.1 Neut % (Auto) 76.8 Lymph % (Auto) 16.9 Butler % (Auto) 5.4 Eos % (Auto) 0.0 Baso % (Auto) 0.2 Neut # (Auto) 4.73 Lymph # (Auto) 1.0 Butler # (Auto) 0.3 Eos # (Auto) 0.0 Baso # (Auto) 0.0 Nucleated RBC % (a uto) 0 Nucleated RBCs # 0.0 D-Dimer 1.47 H Specimen Type Sample Site ABG pH ABG pCO2 ABG pO2 ABG HCO3 ABG Base Excess Osei Test Hematocrit O2 Delivery Device FiO2 [employer] Plant Assembler ID Sodium 138 Potassium 4.2 Chloride 102 Carbon Dioxide 21 L Anion Gap 19.2 H BUN 16 Creatinine 0.6 L GFR Calculation 138.9 H Glucose 124 H Calculated Osmolal ity 289 Lactic Acid Calcium 8.5 Magnesium Total Bilirubin 0.5 AST 13 ALT 11 Alkaline Phosphata se 63 C-Reactive Protein Total Protein 5.8 L Albumin 3.7 Globulin 2.1 Procalcitonin 03/06/21 03/05/21 03/05/21 05:57 15:00 14:55 WBC RBC Hgb Hct MCV MCH MCHC RDW Plt Count MPV Neut % (Auto) Lymph % (Auto) Butler % (Auto) Eos % (Auto) Baso % (Auto) Neut # (Auto) Lymph # (Auto) Butler # (Auto) Eos # (Auto) Baso # (Auto) Nucleated RBC % (a uto) Nucleated RBCs # D-Dimer Specimen Type Arterial Sample Site Brachial, right ABG pH 7.50 H ABG pCO2 30.9 L ABG pO2 66.8 L ABG HCO3 24.2 ABG Base Excess 1.9 Osei Test N/a Hematocrit 46.8 O2 Delivery Device None FiO2 21.0 [employer] Plant Assembler ID Rieri Sodium Potassium Chloride Carbon Dioxide Anion Gap BUN Creatinine GFR Calculation Glucose Calculated Osmolal ity Lactic Acid 1.2 Calcium Magnesium Total Bilirubin AST ALT Alkaline Phosphata se C-Reactive Protein 77.1 H Total Protein Albumin Globulin Procalcitonin 03/05/21 03/05/21 03/05/21 14:55 14:55 14:55 WBC 11.8 H RBC 5.13 Hgb 15.0 Hct 45.4 MCV 88.5 MCH 29.2 MCHC 33.0 RDW 12.4 Plt Count 311 MPV 9.7 Neut % (Auto) 83.4 Lymph % (Auto) 10.3 Butler % (Auto) 4.3 Eos % (Auto) 1.0 Baso % (Auto) 0.3 Neut # (Auto) 9.82 H Lymph # (Auto) 1.2 Butler # (Auto) 0.5 Eos # (Auto) 0.1 Baso # (Auto) 0.0 Nucleated RBC % (a uto) 0 Nucleated RBCs # 0.0 D-Dimer 1.74 H Specimen Type Sample Site ABG pH ABG pCO2 ABG pO2 ABG HCO3 ABG Base Excess Osei Test Hematocrit O2 Delivery Device FiO2 [employer] Plant Assembler ID Sodium 137 Potassium 4.4 Chloride 99 Carbon Dioxide 21 L Anion Gap 21.4 H BUN 14 Creatinine 0.8 GFR Calculation 99.6 Glucose 110 Calculated Osmolal ity 285 Lactic Acid Calcium 8.7 Magnesium 1.9 Total Bilirubin 0.5 AST 16 ALT 13 Alkaline Phosphata se 70 C-Reactive Protein 70.6 H Total Protein 6.2 L Albumin 3.9 Globulin 2.3 Procalcitonin 0.08 Vitals: Last Vital Signs Temp 98.5 F 03/06/21 08:00 Pulse 90 03/06/21 11:17 Resp 18 01/18/22 11:17 BP 137/70 03/06/21 11:17 Pulse Ox 96 03/06/21 11:17 Discharge Plan Discharge Patient Disposition: Home Condition: Stable Prescriptions: New benzonatate 100 mg Capsule 200 mg PO TID 10 Days Qty: 60 RF: 1 Decadron 6 mg tablet 6 mg PO DAILY Qty: 4 RF: 0 codeine-guaifenesin 10-100 mg/5 mL Liquid 10 ml PO Q4H PRN (Reason: Cough) 14 Days Qty: 237 RF: 0 Continued cholecalciferol (vitamin D3) 25 mcg (1,000 unit) capsule 25 mcg PO DAILY RF: 0 lisinopril 10 mg tablet 5 mg PO DAILY RF: 0 albuterol sulfate 90 mcg/actuation HFA aerosol inhaler 2 inh INHALATION Q4H PRN (Reason: shortness of breath or wheezing) Qty: 18 RF: 0 doxycycline hyclate 100 mg capsule 100 mg PO BID RF: 0 omeprazole 40 mg capsule,delayed release(DR/EC) 40 mg PO DAILY RF: 0 Discharge Orders: Discharge Order (Routine); Ordered 03/06/21 Ordered By: Arnol Del Cid Referrals: Chelsie Santillan MD [Primary Care Provider] - 03/20/21 3:00 pm Discharge Diet: Cardiac Discharge Activity: Increase activity as tolerated, Limit activity as instructed and Oxygen as instructed Patient Instructions: Antitussives (By mouth), Dexamethasone (By mouth), Using Oxygen at Home (GEN), Hypoxia (GEN), COVID-19 (Coronavirus Disease 2019) (GEN), Opioid Safety Activity Restrictions/Additional Instructions: Continue oxygen at home, target saturation 90% or above, if decreasing below 88%, which may happen with activity, increase oxygen by 1-2 L, recheck again oxygen level until oxygen saturations increasing above 90%. If it is not increasing increase oxygen flow further. If despite increasing oxygen flow oxygen saturation remains low, or you develop progressive worsening fatigue, worsening shortness of breath, chest pain or pressure, or other concerning symptoms, please seek medical attention. Continue cough suppressants to help suppress bouts of cough. Once you recover please seek COVID-19 vaccination to help prevent recurrence of severe COVID-19 illness. Discharge Attestations Time Spent in Discharge Care*: greater than 30 min Quality Metrics Clinical Quality Measures During this hospital stay, did patient experience: None Coding Level of Care Code Acute Chg FW DC note Diagnoses COVID-19 U07.1 Hypoxemia R09.02
[2021-03-06] MEDS: albuterol 8 gm MDI 2 PUFF INHALATION (14:50)
[2021-03-06] MEDS: acetaminophen 325 mg Tablet 650 MG PO (17:24)
[2021-03-06] MEDS: enoxaparin 40 mg/0.4 mL Syringe SUBCUT (20:09)
--- NOTE | 2021-03-06 20:31 | PC.NURSE ---
Oxygen tray delivery aide is in room with patient with his home o2.
== END 2021-03-06 21:15 | disposition home or self-care (01) ==
LOC: ER 19:47 → MEDSURG 20:00
PROVIDERS: Family Medicine; Nurse Practitioner Family; Admitting Provider Internal Medicine; Emergency Provider Emergency Medicine; PCP Family Medicine; Visit Provider Internal Medicine
DX: U07.1 COVID-19 (principal); R09.02 Hypoxemia; J12.82 Pneumonia due to coronavirus disease 2019; K21.9 Gastro-esophageal reflux disease without esophagitis; I10 Essential (primary) hypertension
CPT/HCPCS: 36415; 36600; 71045; 71275; 80053; 82803; 83605; 83735; 84145; 85025; 85378; 86140; 94640; 94664; 96365; 96372; 96375; 99285; G0378; J1100; J1650; J3535; J7030; Q9967

== ENCOUNTER 2021-03-13 13:44 | Emergency (ER) | payer OTHER, SELFPAY ==
[2021-03-13 13:49] VITALS: BP 126/81; PULSE 96; RESP 20; TEMP 36.9; O2SAT 96; BMI 29.9
--- NOTE | 2021-03-13 14:30 | USCV_ITS ---
Melissa Sudhir Age: 56 Gender: M : 1965 Exam Date: 03/13/2021 15:02 Ordering Phys: Gaby Tran Technologist: JOSE Exam Location: [facility] [place] Indication: Right calf pain HISTORY: Lower extremity pain. H/o COVID. PROCEDURES: Venous duplex imaging was performed in only the right lower extremity. The following venous structures were evaluated: common femoral vein, profunda vein, proximal portion of the greater saphenous vein, superficial femoral vein, and the popliteal vein. In addition, the posterior tibial and peroneal trunk were evaluated. FINDINGS: There appears to be thrombus in the Rt SSV from prox to mid as well as the the medial grastroc and partial thrombus in the lateral gastroc. Where these veins join the Rt popliteal the junction appears free of thrombus at this time. All other veins imaged appear compressible and free of thrombus at this time. CONCLUSIONS DVT in the medial gastrocnemius and non occlusive DVT lateral gastrocnemius. Superficial thrombus in the small saphenous proximal and mid. Remainder of RLE veins are patent. Tesfaye Singh MD (Electronically Signed) Final Date: 13 March 2021 17:16 S
[2021-03-13 14:31] VITALS: BP 127/87; PULSE 98; RESP 20; O2SAT 96
--- NOTE | 2021-03-13 14:34 | ED_ITS ---
Documented by User: ISADORA Gorman 03/13/21 16:30 HPI - Extremity Problem General: Chief complaint: Extremity Injury, Lower Stated complaint: back of right leg injury Time Seen by Provider: 03/13/21 14:32 Source: patient and family Mode of arrival: ambulatory Limitations: no limitations History of Present Illness: HPI Narrative: Patient is a 56-year-old male who presents to ED today with complaint of right calf pain over the past 3 days. [facility]. Patient states he tested positive for COVID on 02/27. Patient was shortly later admitted to the hospital. He was discharged on 03/06. Patient states he is slowly continuing to improve. He is no longer requiring oxygen. Patient received a CTA while in the hospital which did not show evidence of PE. He was receiving Lovenox while inpatient. Denies hx of previous DVT/PE. No known injury/trauma to the calf. MD Complaint: extremity pain and extremity swelling Onset (ago): day(s) Pain Consistency: constant Location: right and lower extremity Radiation: none Relieving factors: rest Exacerbating factors: weight bearing Associated symptoms: Reports no associated symptoms; Deny chest pain, fever(s) or rash Context: other (recent COVID infection) Review of Systems Const: Reports: fatigue (residual from COVID infection); Denies: fever(s), chills or body aches Eyes: Denies: change in vision Card: Reports: dyspnea on exertion (improving from recent COVID infection); Denies: chest pain, palpitations, irregular heart rhythm, edema, swelling of feet/ankles, lightheadedness, syncope, pre-syncope, orthopnea, leg pain with exertion or acrocyanosis Resp: Denies: productive cough, non-productive cough, wheezing, hemoptysis or chest congestion GI: Denies: abdominal pain, nausea, vomiting or diarrhea Musc: Reports: extremity pain and extremity swelling; Denies: neck pain, back pain, joint pain, joint swelling, joint redness or joint warmth Skin/Breast: Denies: rash Neuro: Denies: headache(s), numbness in extremities, weakness in extremities or sensory changes PFSH ED PFSH: Medical History Adenomatous duodenal polyp Bleeding per rectum Colon polyps Esophagitis GERD (gastroesophageal reflux disease) HTN (hypertension) Surgical History History of appendectomy History of back surgery History of nasal surgery Previous back surgery Family History Grandfather IPF (idiopathic pulmonary fibrosis) Social History Smoking and tobacco status: never smoked Alcohol intake: never Marital status: Physical Exam Const: COMMON NORMALS: no acute distress, average body habitus, patient oriented x3, no limitations, healthy appearing, alert and well nourished Resp: COMMON NORMALS: normal respiratory effort and clear to auscultation bilaterally AUSCULTATION: clear to auscultation bilaterally Cardio: COMMON NORMALS: regular rate and regular rhythm RATE: regular rate RHYTHM: regular rhythm Extremity: GENERAL: Yes normal exam except as noted RIGHT LOWER EXTREMITY: Yes lower leg (TTP proximal calf; no redness/warmth; mild swelling noted) Right lower leg: Yes neurovascular exam (normal) and Yes other (+ Conner's) Neuro: COMMON NORMALS: patient oriented x3, moves all extremities, no focal motor deficits and no sensory deficits noted SENSORIUM/ORIENTATION: Yes alert Skin: COMMON NORMALS: no rashes or lesions noted GENERAL SKIN EXAM: no rashes or lesions noted Course Vital Signs: Vital signs: Vital Signs Temperature 98.5 F 03/13/21 13:49 Pulse Rate 98 03/13/21 14:31 Respiratory Rate 20 H 03/13/21 14:31 Blood Pressure 127/87 03/13/21 14:31 Pulse Oximetry 96 03/13/21 14:31 MDM - Extremity (Nontraumatic) MDM Narrative Medical decision making narrative: Ultrasound of his right lower extremity shows a thrombus to his superficial/small saphenous vein and thrombus to his medial/lateral gastrocnemius veins. These are superficial veins however because of their close proximity to the saphenous popliteal junction UpToDate guidelines does recommend anticoagulation therapy. Patient states he would [facility] therefore today's dose was given prior to discharge and he was given a dose for tomorrow morning. [facility] to the [facility] who stated [facility] should be able to fill his prescription tomorrow. Discharge Plan Discharge Patient Disposition: Home Clinical Impression: Acute superficial venous thrombosis of right lower extremity Condition: Stable Prescriptions: New Eliquis DVT-PE Treat 30D Start 5 mg (74 tabs) tablets,dose pack See Rx Instructions .ROUTE .COMPLEX Qty: 74 0RF Rx Instructions: orally per package directions No Action cholecalciferol (vitamin D3) 25 mcg (1,000 unit) capsule 25 mcg PO DAILY 0RF lisinopril 10 mg tablet 5 mg PO DAILY 0RF albuterol sulfate 90 mcg/actuation HFA aerosol inhaler 2 inh INHALATION Q4H PRN (Reason: shortness of breath or wheezing) Qty: 18 0RF doxycycline hyclate 100 mg capsule 100 mg PO BID 0RF Rx Instructions: X10 DAYS omeprazole 40 mg capsule,delayed release(DR/EC) 40 mg PO DAILY 0RF benzonatate 100 mg Capsule 200 mg PO TID 10 Days Qty: 60 1RF Decadron 6 mg tablet 6 mg PO DAILY Qty: 4 0RF codeine-guaifenesin 10-100 mg/5 mL Liquid 10 ml PO Q4H PRN (Reason: Cough) 14 Days Qty: 237 0RF Discharge Orders: Discharge ED (Routine); Ordered 03/13/21 Ordered By: Gaby Tran Referrals: Chelsie Santillan MD [Primary Care Provider] - Patient Instructions: Superficial Thrombophlebitis (ED) Activity Restrictions/Additional Instructions: As we have discussed I have [facility] to [facility]. Coding Level of Care Code ED Sanitation Inspector for Chg Fwd Exam Detailed Documented by User: Benito Metcalf MD 03/17/21 19:57 HPI - Extremity Problem General: Chief complaint: Extremity Injury, Lower Stated complaint: back of right leg injury Time Seen by Provider: 03/13/21 14:32 PFSH ED PFSH: Medical History Adenomatous duodenal polyp Bleeding per rectum Colon polyps Esophagitis GERD (gastroesophageal reflux disease) HTN (hypertension) Surgical History History of appendectomy History of back surgery History of nasal surgery Previous back surgery Family History Grandfather IPF (idiopathic pulmonary fibrosis) Social History Smoking and tobacco status: never smoked Alcohol intake: never Marital status: Course Vital Signs: Vital signs: Vital Signs Temperature 98.5 F 03/13/21 13:49 Pulse Rate 98 03/13/21 14:31 Respiratory Rate 20 H 03/13/21 14:31 Blood Pressure 127/87 03/13/21 14:31 Pulse Oximetry 96 03/13/21 14:31 MDM - Extremity (Nontraumatic) Other Data Other Data: Reviewed this documentation by ISADORA Gorman. Benito Metcalf MD Emergency Medicine Discharge Plan Discharge Patient Disposition: Home Clinical Impression: Acute superficial venous thrombosis of right lower extremity Condition: Stable Prescriptions: New Eliquis DVT-PE Treat 30D Start 5 mg (74 tabs) tablets,dose pack See Rx Instructions .ROUTE .COMPLEX Qty: 74 0RF Rx Instructions: orally per package directions No Action cholecalciferol (vitamin D3) 25 mcg (1,000 unit) capsule 25 mcg PO DAILY 0RF lisinopril 10 mg tablet 5 mg PO DAILY 0RF albuterol sulfate 90 mcg/actuation HFA aerosol inhaler 2 inh INHALATION Q4H PRN (Reason: shortness of breath or wheezing) Qty: 18 0RF doxycycline hyclate 100 mg capsule 100 mg PO BID 0RF Rx Instructions: X10 DAYS omeprazole 40 mg capsule,delayed release(DR/EC) 40 mg PO DAILY 0RF benzonatate 100 mg Capsule 200 mg PO TID 10 Days Qty: 60 1RF Decadron 6 mg tablet 6 mg PO DAILY Qty: 4 0RF codeine-guaifenesin 10-100 mg/5 mL Liquid 10 ml PO Q4H PRN (Reason: Cough) 14 Days Qty: 237 0RF Discharge Orders: Discharge ED (Routine); Ordered 03/13/21 Ordered By: Gaby Tran Referrals: Chelsie Santillan MD [Primary Care Provider] - Patient Instructions: Superficial Thrombophlebitis (ED) Activity Restrictions/Additional Instructions: As we have discussed I [facility]. Coding Level of Care Code ED Sanitation Inspector for Chg Fwd Exam Detailed
[2021-03-13] MEDS: apixaban 5 mg Tablet 10 MG PO ×2 (16:11)
--- NOTE | 2021-03-13 16:12 | PC.NURSE ---
Pt provided 2 tablet to go home to administer in the morning.
== END 2021-03-13 16:14 | disposition home or self-care (01) ==
PROVIDERS: Emergency Provider Physician Assistant; PCP Family Medicine
DX: I82.811 Embolism and thrombosis of superficial veins of right lower extremity (principal); I10 Essential (primary) hypertension
CPT/HCPCS: 93971; 99283

== ENCOUNTER → 2021-05-29 14:50 | Outpatient (BNVA) | payer OTHER, SELFPAY | PROVIDERS: PCP Family Medicine; Visit Provider Otolaryngology | DX: R49.0 Dysphonia (principal); U07.1 COVID-19; J12.82 Pneumonia due to coronavirus disease 2019; R05.3 Chronic cough; K21.9 Gastro-esophageal reflux disease without esophagitis | CPT/HCPCS: 31575; 99203; 99204 ==

== ENCOUNTER → 2021-05-30 09:50 | Outpatient (BNVA) | payer OTHER, SELFPAY | PROVIDERS: PCP Family Medicine; Visit Provider Surgery | DX: Z86.010 Personal history of colon polyps (principal) | CPT/HCPCS: 99213 ==

== ENCOUNTER 2021-06-25 14:39 | Outpatient (CLI) | payer OTHER, SELFPAY ==
--- NOTE | 2021-06-25 14:50 | USCV_ITS ---
Sudhir Torres Age: 56 Gender: M : 1965 Exam Date: 06/25/2021 14:56 Ordering Phys: Chelsie Santillan MD Technologist: Chantale Bland Exam Location: [facility] [place] Indication: DIZZINESS Risk Factors: Unknown Previous Vascular Surgery: None Right Brachial BP: / Left Brachial BP: / Right Left Velocity (cm/s) Spectral Plaque Velocity (cm/s) Spectral Plaque Syst/Diast Broadening Syst/Diast Broadening 125.70/26.50 Prox CCA 149.30/ 25.60 100.30/24.30 Mid CCA 99.50 / 23.00 70.60/ 20.90 Distal CCA 90.60 / 23.00 74.10/ 29.60 Prox ICA 81.30 / 31.10 72.50/ 31.20 Mid ICA 78.60 / 32.90 75.60/ 35.10 Distal ICA 88.60 / 35.60 103.60 ECA 77.70 0.75 ICA/CCA 0.89 Antegrade Vertebral Antegrade 29.10/ 9.10 cm/s 58.50/ 18.30 cm/s Tri Subclavian Tri 101.3 67.60 0 FINDINGS Comparison: none available. No significant elevation of systolic or diastolic velocities. Waveforms are normal. No significant amount of calcified plaque or intimal thickening identified. CONCLUSIONS Normal carotid doppler ultrasound. Dr. Inna Epstein DO (Electronically Signed) Final Date: 25 Jun 2021 15:33 S
== END 2021-06-25 14:40 | disposition home or self-care (01) ==
LOC: RAD 14:41
PROVIDERS: PCP Family Medicine; Visit Provider Family Medicine
DX: R42 Dizziness and giddiness (principal)
CPT/HCPCS: 93880

== ENCOUNTER 2021-08-10 14:48 | Emergency (ER) | payer OTHER, SELFPAY ==
[2021-08-10 16:28] VITALS: BP 132/92; PULSE 96; RESP 14; TEMP 36.7; O2SAT 96; BMI 34.2
--- NOTE | 2021-08-10 17:47 | ECG_ITS ---
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 Measurements Intervals [place] Rate: 98 P: 42 SC: 120 QRS: 40 QRSD: 92 T: 36 QT: 332 QTc: 425 Interpretive Statements SINUS RHYTHM NONSPECIFIC T-WAVE ABNORMALITY Compared to ECG 09/19/2017 17:36:39 No significant changes Electronically Signed On 08-10-2021 23:00:02 CDT by Candace Alegria M.D. [id number]
[2021-08-10 19:04] VITALS: BP 147/89; PULSE 76; RESP 14; O2SAT 96
[2021-08-10 21:00] VITALS: BP 147/89; PULSE 75; RESP 15; O2SAT 97
--- NOTE | 2021-08-10 21:44 | XRR_ITS ---
PROCEDURE INFORMATION: Exam: XR Chest Exam date and time: 08/10/2021 9:53 PM Age: 56 years old Clinical indication: Other: Weakness TECHNIQUE: Imaging protocol: Radiologic exam of the chest. Views: 1 view. COMPARISON: CR XR chest 1V portable [id number] 03/05/2021 2:27 PM FINDINGS: Lungs: There is improved aeration in the lungs compared with 03/05/2021. 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 Pleural spaces: Unremarkable. No pleural effusion. No pneumothorax. Heart/Mediastinum: Unremarkable. No cardiomegaly. Bones/joints: Unremarkable. 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
--- NOTE | 2021-08-10 21:45 | W.ED.DIZZY ---
Documented by User: ISADORA Merida 08/11/21 16:10 HPI - Dizziness General: Chief Complaint: Dizziness Stated Complaint: weakness, shakes Time Seen by Provider: 08/10/21 21:43 History of Present Illness: HPI Narrative: Patient is a 56-year-old male comes to the ED with dizziness and weakness. Symptoms have been going on now for approximately 6 months. [facility] while at his appointment he was getting shaky and sweating. They then did an EKG and thought it looked abnormal and instructed him to come here to the ED. He denies any chest pain or shortness of breath and his shakiness and sweating has resolved. He did state that for the past 2 days he has been doing more physical exertion and cleaning out of the room and thinks that likely cause some of his symptoms. His dizziness and weakness started after he had COVID in February and was hospitalized with double pneumonia as well. His endurance and strength has not been the same since COVID. Endorses feeling more short of breath with exertion as well since COVID. He is not currently on any oxygen at home. The [facility] is currently trying to refer him to a oil rigger and oracle manufacturing consultant, but they do not have appointment set up yet. Associated symptoms: Denies chest pain, chills, headache(s), nausea, nasal congestion, palpitations or vomiting Associated neuro symptoms: Deny numbness in extremities Review of Systems Const: Reports: fatigue; Denies: fever(s) or chills Eyes: Denies: change in vision or eye discomfort ENMT: Denies: throat pain, odynophagia, nasal discharge or nasal congestion Card: Denies: chest pain, palpitations, edema, swelling of feet/ankles, dyspnea on exertion or orthopnea Resp: Denies: dyspnea, productive cough or non-productive cough GI: Denies: abdominal pain, nausea, vomiting, diarrhea, constipation or hematochezia : Denies: flank pain, difficulty urinating, dysuria or hematuria Musc: Denies: neck pain, back pain or extremity swelling Skin/Breast: Denies: rash or new lesions Neuro: Denies: headache(s), numbness in extremities or weakness in extremities [facility] ED PFSH: Medical History Adenomatous duodenal polyp Bleeding per rectum Colon polyps Esophagitis GERD (gastroesophageal reflux disease) HTN (hypertension) Surgical History History of appendectomy History of back surgery History of nasal surgery Previous back surgery Family History Grandfather IPF (idiopathic pulmonary fibrosis) Social History Smoking and tobacco status: never smoked Alcohol intake: never Marital status: Physical Exam Const: COMMON NORMALS: patient oriented x3 HENMT: COMMON NORMALS: normocephalic HEAD & SCALP: normocephalic MOUTH: Normal oral and palatal mucosa present THROAT: posterior oropharynx normal and uvula midline Eye: COMMON NORMALS: Equal, round and reactive pupils present and conjunctivae normal CONJUNCTIVA: Yes conjunctivae normal PUPIL: Yes Equal, round and reactive pupils present Neck/C-Spine: COMMON NORMALS: supple GENERAL: Yes normal visual inspection Resp: COMMON NORMALS: normal respiratory effort, No retractions, No use of accessory muscles and clear to auscultation bilaterally AUSCULTATION: clear to auscultation bilaterally Cardio: COMMON NORMALS: regular rate, regular rhythm, S1 normal heart sound present, S2 normal heart sound present, No gallops present (Cardio), No clicks present (Cardio), No murmurs present (Cardio) and Peripheral pulses 2+ throughout RATE: regular rate RHYTHM: regular rhythm HEART SOUNDS: S1 normal heart sound present and S2 normal heart sound present PERIPHERAL PULSES: Peripheral pulses 2+ throughout GI: COMMON NORMALS: Normal to inspection, nondistended, normoactive bowel sounds present, Soft to palpation, non-tender and no masses PALPATION: Yes Soft to palpation : COMMON NORMALS: Yes no CVA tenderness BLADDER/KIDNEY EXAM: Yes no CVA tenderness Back/Pelvis: COMMON NORMALS: no CVA tenderness Extremity: COMMON NORMALS: normal to inspection Neuro: COMMON NORMALS: patient oriented x3 and moves all extremities Skin: GENERAL SKIN EXAM: dry skin Course Vital Signs: Vital signs: Vital Signs Temperature 98.1 F 08/10/21 16:28 Pulse Rate 68 08/11/21 00:30 Respiratory Rate 18 08/11/21 01:43 Blood Pressure 140/93 08/11/21 01:43 Pulse Oximetry 99 08/11/21 01:43 [facility] - Dizziness Medical Decision Making Patient is a 56-year-old male comes to the ED with dizziness and weakness. Symptoms have been going on now for approximately 6 months. [facility] while at his appointment he was getting shaky and sweating. They then did an EKG and thought it looked abnormal and instructed him to come here to the ED. He denies any chest pain or shortness of breath and his shakiness and sweating has resolved. He did state that for the past 2 days he has been doing more physical exertion and cleaning out of the room and thinks that likely cause some of his symptoms. His dizziness and weakness started after he had COVID in February and was hospitalized with double pneumonia as well. His endurance and strength has not been the same since COVID. Endorses feeling more short of breath with exertion as well since COVID. Vitals are stable. Patient appears nontoxic and in no acute distress and is sitting comfortably on exam bed while in the room. The rest of exam was benign. Labs were unremarkable. Troponins negative. EKG showed no ST segment elevation or depression seen. 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 He was diagnosed with persistent fatigue after COVID-19 and shortness of breath on exertion. Due to patient's shortness of breath on exertion I placed an order with case management for patient to be set up with outpatient sestamibi Cardiac stess test.. Patient was stable for discharge home. He is told to follow-up with his PCP in the next week for reevaluation. Lab Data I reviewed the patient's lab results. 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 Laboratory Results WBC 8.7 10^3/uL (4.0-10.0) 08/10/21 21:56 RBC 5.36 10^6/uL (4.1-5.3) H 08/10/21 21:56 Hgb 16.2 g/dL (11.7-16.6) 08/10/21 21:56 Hct 46.8 % (42.0-52.0) 08/10/21 21:56 MCV 87.3 fl (80-94) 08/10/21 21:56 MCH 30.2 pg (28.0-34.0) 08/10/21 21:56 MCHC 34.6 g/dL (30.0-36.0) 08/10/21 21:56 RDW 13.0 % (12.1-15.1) 08/10/21 21:56 Plt Count 247 10^3/cmm (130-400) 08/10/21 21:56 MPV 9.8 fL (7.4-10.4) 08/10/21 21:56 Neut % (Auto) 59.9 % 08/10/21 21:56 Lymph % (Auto) 27.8 % 08/10/21 21:56 [place] % (Auto) 9.3 % 08/10/21 21:56 Eos % (Auto) 1.6 % 08/10/21 21:56 Baso % (Auto) 0.7 % 08/10/21 21:56 Neut # (Auto) 5.24 10^3/uL (1.8-7.7) 08/10/21 21:56 Lymph # (Auto) 2.4 10^3/uL (0.8-4.8) 08/10/21 21:56 [place] # (Auto) 0.8 10^3/uL (0.2-0.9) 08/10/21 21:56 Eos # (Auto) 0.1 10^3/uL (0.0-0.8) 08/10/21 21:56 Baso # (Auto) 0.1 10^3/uL (0.0-0.1) 08/10/21 21:56 Nucleated RBC % (auto) 0 % 08/10/21 21:56 Nucleated RBCs # 0.0 /100WBC 08/10/21 21:56 PT 13.80 SECONDS (12.1-14.9) 08/10/21 21:56 INR 1.03 (0.8-1.2) 08/10/21 21:56 APTT 25.2 SECONDS (23.9-36.7) 08/10/21 21:56 Sodium 133 mmol/L (136-145) L 08/10/21 21:56 Potassium 3.9 mmol/L (3.5-5.1) 08/10/21 21:56 Chloride 96 mmol/L (98-107) L 08/10/21 21:56 Carbon Dioxide 21 mmol/L (22-29) L 08/10/21 21:56 Anion Gap 19.9 (5-19) H 08/10/21 21:56 BUN 22 mg/dL (6-20) H 08/10/21 21:56 Creatinine 0.9 mg/dL (0.7-1.2) 08/10/21 21:56 GFR Calculation 87.0 mL/min (90-130) L 08/10/21 21:56 Glucose 93 mg/dL (65-115) 08/10/21 21:56 Calculated Osmolality 279 mOsm/kg (285-295) L 08/10/21 21:56 Calcium 9.3 mg/dL (8.5-10.5) 08/10/21 21:56 Total Bilirubin 1.2 mg/dL (0.15-1.2) 08/10/21 21:56 AST 23 U/L (0-40) 08/10/21 21:56 ALT 22 U/L (0-41) 08/10/21 21:56 Alkaline Phosphatase 60 IU/L (40-130) 08/10/21 21:56 Troponin T Baseline 6 ng/L (0-15) 08/10/21 21:56 Troponin T 120 Minute 6.90 ng/L (0-15) 08/10/21 23:50 Delta Troponin T 0.90 ABS# (0-10) 08/10/21 23:50 NT-Pro-B Natriuret Pep 24 pg/mL (0-125) 08/10/21 21:56 Total Protein 7.7 g/dL (6.6-8.7) 08/10/21 21:56 Albumin 4.8 g/dL (3.5-5.2) 08/10/21 21:56 Globulin 2.9 g/dL (1.3-4.6) 08/10/21 21:56 Urine Color Yellow (Yellow) 08/10/21 23:40 Urine Appearance Clear (CLEAR) 08/10/21 23:40 Urine pH 5 (5-7) 08/10/21 23:40 Ur Specific [place] 1.030 (1.005-1.030) 08/10/21 23:40 Urine Protein Neg (Negative) 08/10/21 23:40 Urine Glucose (UA) Norm (Normal) 08/10/21 23:40 Urine Ketones 2+ (Negative) H 08/10/21 23:40 Urine Blood Neg (Negative) 08/10/21 23:40 Urine Nitrate Negative (Negative) 08/10/21 23:40 Urine Bilirubin Neg (Negative) 08/10/21 23:40 Urine Urobilinogen Norm mg/dL (Negative) 08/10/21 23:40 Ur Leukocyte Esterase Negative (Negative) 08/10/21 23:40 EKG Data EKG 1: EKG interpretation date: 08/10/21 Interpretation: Baseline EKG sinus rhythm, 90 bpm, no ST segment elevation or depression seen. EKG 2: EKG interpretation date: 08/11/21 Interpretation: 2-hour EKG-sinus rhythm, 72 bpm, no ST segment elevation or depression seen. Discharge Plan Discharge Patient Disposition: Home Clinical Impression: Persistent fatigue after COVID-19, Shortness of breath on exertion Condition: Stable Prescriptions: No Action cholecalciferol (vitamin D3) 25 mcg (1,000 unit) capsule 25 mcg PO DAILY 0RF lisinopril 10 mg tablet 5 mg PO DAILY 0RF salmeterol 50 mcg/dose blister with device 1 inh inhalation BID 0RF zinc gluconate 25 mg tablet 50 mg PO 0RF meclizine 25 mg tablet 25 mg PO DAILY PRN0RF ascorbate calcium (vitamin C) 500 mg tablet 500 mg PO DAILY 0RF Eliquis DVT-PE Treat 30D Start 5 mg (74 tabs) tablets,dose pack See Rx Instructions .ROUTE .COMPLEX Qty: 74 0RF Rx Instructions: orally per package directions albuterol sulfate 90 mcg/actuation HFA aerosol inhaler 2 inh INHALATION Q4H PRN (Reason: shortness of breath or wheezing) Qty: 18 0RF doxycycline hyclate 100 mg capsule 100 mg PO BID 0RF Rx Instructions: X10 DAYS omeprazole 40 mg capsule,delayed release(DR/EC) 40 mg PO DAILY 0RF benzonatate 100 mg Capsule 200 mg PO TID 10 Days Qty: 60 1RF Decadron 6 mg tablet 6 mg PO DAILY Qty: 4 0RF Discharge Orders: Discharge ED (Routine); Ordered 08/11/21 Ordered By: Albaro Aguila Referrals: Chelsie Santillan MD [Primary Care Provider] - Discharge Diet: Regular Discharge Activity: Increase activity as tolerated Activity Restrictions/Additional Instructions: Follow-up with medical provider as directed within the next week for reevaluation. Case management should be contacting you in the next couple days to set up an appointment To get your cardiac stress test. Continue taking all home medications as previously prescribed. Return to the ER or your medical provider if condition worsens. Please read and understand discharge instructions. Thank you for choosing [facility] for your healthcare needs today. Please realize this is an emergency room and that we are providing you with a medical screening exam and this may not be complete and all inclusive of all the testing and or work up that you may need to determine your ailment or severity of your illness. It is very important that you follow up as instructed or that you return to the Emergency Department should you have concerns or if your condition changes or worsens in any way. Coding Level of Care Code ED Lobby Porter for Chg Fwd Exam Comprehensive Documented by User: Federico Chapa, 08/12/21 15:14 HPI - Dizziness General: Chief Complaint: Dizziness Stated Complaint: weakness, shakes Time Seen by Provider: 08/10/21 21:43 [facility] ED PFSH: Medical History Adenomatous duodenal polyp Bleeding per rectum Colon polyps Esophagitis GERD (gastroesophageal reflux disease) HTN (hypertension) Surgical History History of appendectomy History of back surgery History of nasal surgery Previous back surgery Family History Grandfather IPF (idiopathic pulmonary fibrosis) Social History Smoking and tobacco status: never smoked Alcohol intake: never Marital status: Course Vital Signs: Vital signs: Vital Signs Temperature 98.1 F 08/10/21 16:28 Pulse Rate 68 08/11/21 00:30 Respiratory Rate 18 08/11/21 01:43 Blood Pressure 140/93 08/11/21 01:43 Pulse Oximetry 99 08/11/21 01:43 MDM - Dizziness Medical Decision Making Patient is a 56-year-old male comes to the ED with dizziness and weakness. Symptoms have been going on now for approximately 6 months. [facility] while at his appointment he was getting shaky and sweating. They then did an EKG and thought it looked abnormal and instructed him to come here to the ED. He denies any chest pain or shortness of breath and his shakiness and sweating has resolved. He did state that for the past 2 days he has been doing more physical exertion and cleaning out of the room and thinks that likely cause some of his symptoms. His dizziness and weakness started after he had COVID in February and was hospitalized with double pneumonia as well. His endurance and strength has not been the same since COVID. Endorses feeling more short of breath with exertion as well since COVID. Vitals are stable. Patient appears nontoxic and in no acute distress and is sitting comfortably on exam bed while in the room. The rest of exam was benign. Labs were unremarkable. Troponins negative. EKG showed no ST segment elevation or depression seen. 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 He was diagnosed with persistent fatigue after COVID-19 and shortness of breath on exertion. Due to patient's shortness of breath on exertion I placed an order with case management for patient to be set up with outpatient sestamibi Cardiac stess test.. Patient was stable for discharge home. He is told to follow-up with his PCP in the next week for reevaluation. This patient was originally seen by Mr. Ayla PA-C. I agree with this history, evaluation, and treatment. 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 Laboratory Results WBC 8.7 10^3/uL (4.0-10.0) 08/10/21 21:56 RBC 5.36 10^6/uL (4.1-5.3) H 08/10/21 21:56 Hgb 16.2 g/dL (11.7-16.6) 08/10/21 21:56 Hct 46.8 % (42.0-52.0) 08/10/21 21:56 MCV 87.3 fl (80-94) 08/10/21 21:56 MCH 30.2 pg (28.0-34.0) 08/10/21 21:56 MCHC 34.6 g/dL (30.0-36.0) 08/10/21 21:56 RDW 13.0 % (12.1-15.1) 08/10/21 21:56 Plt Count 247 10^3/cmm (130-400) 08/10/21 21:56 MPV 9.8 fL (7.4-10.4) 08/10/21 21:56 Neut % (Auto) 59.9 % 08/10/21 21:56 Lymph % (Auto) 27.8 % 08/10/21 21:56 [place] % (Auto) 9.3 % 08/10/21 21:56 Eos % (Auto) 1.6 % 08/10/21 21:56 Baso % (Auto) 0.7 % 08/10/21 21:56 Neut # (Auto) 5.24 10^3/uL (1.8-7.7) 08/10/21 21:56 Lymph # (Auto) 2.4 10^3/uL (0.8-4.8) 08/10/21 21:56 [place] # (Auto) 0.8 10^3/uL (0.2-0.9) 08/10/21 21:56 Eos # (Auto) 0.1 10^3/uL (0.0-0.8) 08/10/21 21:56 Baso # (Auto) 0.1 10^3/uL (0.0-0.1) 08/10/21 21:56 Nucleated RBC % (auto) 0 % 08/10/21 21:56 Nucleated RBCs # 0.0 /100WBC 08/10/21 21:56 PT 13.80 SECONDS (12.1-14.9) 08/10/21 21:56 INR 1.03 (0.8-1.2) 08/10/21 21:56 APTT 25.2 SECONDS (23.9-36.7) 08/10/21 21:56 Sodium 133 mmol/L (136-145) L 08/10/21 21:56 Potassium 3.9 mmol/L (3.5-5.1) 08/10/21 21:56 Chloride 96 mmol/L (98-107) L 08/10/21 21:56 Carbon Dioxide 21 mmol/L (22-29) L 08/10/21 21:56 Anion Gap 19.9 (5-19) H 08/10/21 21:56 BUN 22 mg/dL (6-20) H 08/10/21 21:56 Creatinine 0.9 mg/dL (0.7-1.2) 08/10/21 21:56 GFR Calculation 87.0 mL/min (90-130) L 08/10/21 21:56 Glucose 93 mg/dL (65-115) 08/10/21 21:56 Calculated Osmolality 279 mOsm/kg (285-295) L 08/10/21 21:56 Calcium 9.3 mg/dL (8.5-10.5) 08/10/21 21:56 Total Bilirubin 1.2 mg/dL (0.15-1.2) 08/10/21 21:56 AST 23 U/L (0-40) 08/10/21 21:56 ALT 22 U/L (0-41) 08/10/21 21:56 Alkaline Phosphatase 60 IU/L (40-130) 08/10/21 21:56 Troponin T Baseline 6 ng/L (0-15) 08/10/21 21:56 Troponin T 120 Minute 6.90 ng/L (0-15) 08/10/21 23:50 Delta Troponin T 0.90 ABS# (0-10) 08/10/21 23:50 NT-Pro-B Natriuret Pep 24 pg/mL (0-125) 08/10/21 21:56 Total Protein 7.7 g/dL (6.6-8.7) 08/10/21 21:56 Albumin 4.8 g/dL (3.5-5.2) 08/10/21 21:56 Globulin 2.9 g/dL (1.3-4.6) 08/10/21 21:56 Urine Color Yellow (Yellow) 08/10/21 23:40 Urine Appearance Clear (CLEAR) 08/10/21 23:40 Urine pH 5 (5-7) 08/10/21 23:40 Ur Specific [place] 1.030 (1.005-1.030) 08/10/21 23:40 Urine Protein Neg (Negative) 08/10/21 23:40 Urine Glucose (UA) Norm (Normal) 08/10/21 23:40 Urine Ketones 2+ (Negative) H 08/10/21 23:40 Urine Blood Neg (Negative) 08/10/21 23:40 Urine Nitrate Negative (Negative) 08/10/21 23:40 Urine Bilirubin Neg (Negative) 08/10/21 23:40 Urine Urobilinogen Norm mg/dL (Negative) 08/10/21 23:40 Ur Leukocyte Esterase Negative (Negative) 08/10/21 23:40 Discharge Plan Discharge Patient Disposition: Home Clinical Impression: Persistent fatigue after COVID-19, Shortness of breath on exertion Condition: Stable Prescriptions: No Action cholecalciferol (vitamin D3) 25 mcg (1,000 unit) capsule 25 mcg PO DAILY 0RF lisinopril 10 mg tablet 5 mg PO DAILY 0RF salmeterol 50 mcg/dose blister with device 1 inh inhalation BID 0RF zinc gluconate 25 mg tablet 50 mg PO 0RF meclizine 25 mg tablet 25 mg PO DAILY PRN0RF ascorbate calcium (vitamin C) 500 mg tablet 500 mg PO DAILY 0RF Eliquis DVT-PE Treat 30D Start 5 mg (74 tabs) tablets,dose pack See Rx Instructions .ROUTE .COMPLEX Qty: 74 0RF Rx Instructions: orally per package directions albuterol sulfate 90 mcg/actuation HFA aerosol inhaler 2 inh INHALATION Q4H PRN (Reason: shortness of breath or wheezing) Qty: 18 0RF doxycycline hyclate 100 mg capsule 100 mg PO BID 0RF Rx Instructions: X10 DAYS omeprazole 40 mg capsule,delayed release(DR/EC) 40 mg PO DAILY 0RF benzonatate 100 mg Capsule 200 mg PO TID 10 Days Qty: 60 1RF Decadron 6 mg tablet 6 mg PO DAILY Qty: 4 0RF Discharge Orders: Discharge ED (Routine); Ordered 06/25/22 Ordered By: Albaro Aguila Referrals: Chelsie Santillan MD [Primary Care Provider] - Discharge Diet: Regular Discharge Activity: Increase activity as tolerated Activity Restrictions/Additional Instructions: Follow-up with medical provider as directed within the next week for reevaluation. Case management should be contacting you in the next couple days to set up an appointment To get your cardiac stress test. Continue taking all home medications as previously prescribed. Return to the ER or your medical provider if condition worsens. Please read and understand discharge instructions. Thank you for choosing [facility] for your healthcare needs today. Please realize this is an emergency room and that we are providing you with a medical screening exam and this may not be complete and all inclusive of all the testing and or work up that you may need to determine your ailment or severity of your illness. It is very important that you follow up as instructed or that you return to the Emergency Department should you have concerns or if your condition changes or worsens in any way. Coding Level of Care Code ED Lobby Porter for Ej Fwmyesha Exam Comprehensive
[2021-08-10 22:04] LABS: Basophils # 0.1 10^3/uL (0.0-0.1); Basophils % 0.7 %; Eosinophils # 0.1 10^3/uL (0.0-0.8); Eosinophils % 1.6 %; Hematocrit 46.8 % (42.0-52.0); Hemoglobin 16.2 g/dL (11.7-16.6); Lymphocytes # 2.4 10^3/uL (0.8-4.8); Lymphocytes % 27.8 %; Mean Corpuscular HGB Conc 34.6 g/dL (30.0-36.0); Mean Corpuscular Hemoglobin 30.2 pg (28.0-34.0); Mean Corpuscular Volume 87.3 fl (80-94); Mean Platelet Volume 9.8 fL (7.4-10.4); Monocytes # 0.8 10^3/uL (0.2-0.9); Monocytes % 9.3 %; Neutrophils # 5.24 10^3/uL (1.8-7.7); Neutrophils % 59.9 %; Nucleated Red Blood Cells % 0 %; Platelet Count 247 10^3/cmm (130-400); Red Blood Count 5.36 10^6/uL (4.1-5.3); White Blood Count 8.7 10^3/uL (4.0-10.0)
[2021-08-10 22:17] LABS: INR 1.03 (0.8-1.2)
[2021-08-10 22:18] LABS: Partial Thromboplastin Time 25.2 SECONDS (23.9-36.7)
[2021-08-10 22:27] LABS: Troponin(5th) Baseline 6 ng/L (0-15)
[2021-08-10 22:34] LABS: Alanine Aminotransferase 22 U/L (0-41); Albumin Level 4.8 g/dL (3.5-5.2); Alkaline Phosphatase 60 IU/L (40-130); Anion Gap 19.9 (5-19); Aspartate Amino Transferase 23 U/L (0-40); Blood Urea Nitrogen 22 mg/dL (6-20); Calcium 9.3 mg/dL (8.5-10.5); Carbon Dioxide 21 mmol/L (22-29); Chloride 96 mmol/L (98-107); Globulin 2.9 g/dL (1.3-4.6); Glucose 93 mg/dL (65-115); NT Pro B Type Natriuretic Pept 24 pg/mL (0-125); Osmolality Calculated 279 mOsm/kg (285-295); Potassium 3.9 mmol/L (3.5-5.1); Sodium 133 mmol/L (136-145); Total Bilirubin 1.2 mg/dL (0.15-1.2); Total Protein 7.7 g/dL (6.6-8.7)
[2021-08-10 23:00] VITALS: BP 140/91; PULSE 89; RESP 20
--- NOTE | 2021-08-10 23:44 | ECG_ITS ---
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 Measurements Intervals [place] Rate: 75 P: 36 [place]: 130 QRS: 26 QRSD: 103 T: 30 QT: 388 QTc: 435 Interpretive Statements SINUS RHYTHM NONSPECIFIC T-WAVE ABNORMALITY Compared to ECG 08/10/2021 16:27:00 No significant changes Electronically Signed On 08-12-2021 13:29:54 CDT by Louie Whittington M.D. [id number]
[2021-08-11] VITALS: BP 129/86; PULSE 65; RESP 18; O2SAT 96
[2021-08-11 00:17] LABS: Add Urine Microscopic? NO; Charge for UA Resulting for Rev
[2021-08-11 00:28] LABS: Bilirubin Urine Neg (Negative); Blood Urine Neg (Negative); Glucose Urine UA Norm (Normal); Ketones Urine 2+ (Negative); Leukocyte Esterase Urine Negative (Negative); Nitrate Urine Negative (Negative); Protein Urine Neg (Negative); Urine Appearance Clear (CLEAR); Urine Color Yellow (Yellow); Urobilinogen Urine Norm (Negative); pH Urine 5 (5-7)
[2021-08-11 00:30] VITALS: BP 112/68; PULSE 68; RESP 18; O2SAT 95
[2021-08-11 01:00] VITALS: BP 141/93; RESP 18; O2SAT 96
[2021-08-11 01:30] VITALS: BP 140/93; RESP 18; O2SAT 99
[2021-08-11 01:43] VITALS: BP 140/93; RESP 18; O2SAT 99
--- NOTE | 2021-08-11 03:44 | ECG_ITS ---
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 Measurements Intervals [place] Rate: 72 P: 46 [place]: 131 QRS: 36 QRSD: 104 T: 15 QT: 393 QTc: 430 Interpretive Statements SINUS RHYTHM POSSIBLE RIGHT VENTRICULAR CONDUCTION DELAY [RSR (QR) IN V1/V2] NONSPECIFIC T-WAVE ABNORMALITY Compared to ECG 08/10/2021 23:48:11 No significant changes Electronically Signed On 08-12-2021 13:29:39 CDT by Louie Whittington M.D. [id number]
--- NOTE | 2021-08-11 11:13 | DCPLANNER ---
Addendum entered by Liliam Tomlinson 10/12/21 16:26: Patient did attend appointment with heart care Addendum entered by Liliam Tomlinson 08/23/21 18:46: Patient has a follow up appointment scheduled for September at 1:[address] Whittington at [facility]. Clinic will call patient with appointment information. Addendum entered by Liliam Tomlinson 08/11/21 11:18: manager training sent patients information to [facility]. Addendum entered by Liliam Tomlinson 08/11/21 11:14: Patient has [facility], a stress test can not be ordered from the ER. manager training put in a referral to cardiology for patient to get follow up and if the studio producer thinks that patient needs a stress test, then the studio producer can order the stress test. Original Note: manager training had message to schedule an outpatient stress test for patient. manager training faxed a signed order for stress test to centralized scheduling, who will call patient with appointment information.
== END 2021-08-11 01:46 | disposition home or self-care (01) ==
PROVIDERS: Emergency Provider Physician Assistant; PCP Family Medicine
DX: R53.83 Other fatigue (principal); U09.9 Post COVID-19 condition, unspecified; R06.02 Shortness of breath; Z79.01 Long term (current) use of anticoagulants; I10 Essential (primary) hypertension
CPT/HCPCS: 71045; 80053; 81003; 83880; 84484; 85025; 85610; 85730; 93005; 99284

== ENCOUNTER → 2021-09-26 13:54 | Outpatient (BNVA) | payer OTHER, SELFPAY | PROVIDERS: PCP Family Medicine; Visit Provider Surgery | DX: Z86.010 Personal history of colon polyps (principal); R49.0 Dysphonia | CPT/HCPCS: 99212 ==

== ENCOUNTER → 2021-10-04 12:30 | Outpatient (BNVA) | payer OTHER, SELFPAY | PROVIDERS: PCP Family Medicine; Visit Provider Internal Medicine Critical Care Medicine | DX: J84.10 Pulmonary fibrosis, unspecified (principal); R05.3 Chronic cough; R06.02 Shortness of breath; R53.83 Other fatigue; R06.09 Other forms of dyspnea; I10 Essential (primary) hypertension; R94.31 Abnormal electrocardiogram [ECG] [EKG]; I82.4Z9 Acute embolism and thrombosis of unspecified deep veins of unspecified distal lower extremity; U09.9 Post COVID-19 condition, unspecified | CPT/HCPCS: 36415; 82785; 85025; 86003; 93005; 99203; 99204; 99205 ==

== ENCOUNTER 2021-10-05 07:11 | Day surgery (SDC) | payer OTHER, SELFPAY ==
[2021-10-03 13:22] VITALS: BMI 34.8
[2021-10-05] VITALS (8 sets, daily range): BP systolic 134–155; BP diastolic 82–104; PULSE 82–112; RESP 18–20; TEMP 36.1–36.5; O2SAT 91–98
[2021-10-05] MEDS: sodium chloride 0.9% 1,000 ML 30 ML IV (07:35)
--- NOTE | 2021-10-05 07:45 | W.PM.OPSFHP ---
Same Day Surgery H&P Indication for Procedure/HPI DATE OF PROCEDURE: October 05, 2021 CHIEF COMPLAINT/INDICATIONFOR SURGICAL PROCEDURE: History of colon polyps PREOP DIAGNOSIS: History of colon polyps PLANNED PROCEDURE: Operation Date: 10/05/21 08:45 Proposed Procedures p Colonoscopy 31376,Z86.010(Not Applicable) - Roberto Carlos Fair MD Patient comes today for surveillance colonoscopy. Denies any other complaints ROS All systems have been reviewed negative except as for the above or per problem list. Medications/Allergies* Home Medications Medication Instructions Recorded Confirmed Type omeprazole 40 mg capsule,delayed 40 mg PO DAILY 03/05/21 10/05/21 History release hydrochlorothiazide 25 mg tablet 12.5 mg PO DAILY 10/03/21 10/05/21 History Allergies/Adverse Reactions Allergy/AdvReac Type Severity Reaction Status Date / Time lisinopril Allergy ADR-Cough Verified 10/05/21 07:45 Current Medications: Generic Name Dose Route Start Last Admin Trade Name Freq PRN Reason Stop Dose Admin Sodium Chloride 1,000 mls @ 30 mls/hr 10/05/21 07:15 10/05/21 07:35 Sodium Chloride 0.9% IV 10/06/21 07:14 30 mls/hr .Q24H PERLA Administration Pertinent History/Comorbid Conditions* Medical History (Updated 10/04/21 @ 14:15 by Louie Whittington M.D) Adenomatous duodenal polyp Bleeding per rectum Colon polyps Esophagitis GERD (gastroesophageal reflux disease) HTN (hypertension) Surgical History (Updated 03/05/21 @ 17:49 by Arnol Del Cid MD) History of appendectomy History of back surgery History of nasal surgery Previous back surgery Family History (Updated 10/04/21 @ 12:50 by Litzy Feldman LPN) IPF (idiopathic pulmonary fibrosis) Father Emphysema lung Grandmother COPD (chronic obstructive pulmonary disease) Grandmother Social History Smoking and tobacco status: never smoked Alcohol intake: never Marital status: Pertinent Exam Findings alert, oriented x 3, regular rate & rhythm and procedure specific exam findings (Abdominal examination nontender nondistended soft) Recommendations Surgery/Procedure today (Surveillance colonoscopy) Coding Level of Care Code Acute Machine Buffer for Ej Ortega
--- NOTE | 2021-10-05 08:15 | ANES.PREANE2 ---
Pre-Anesthetic Assessment Height/Weight: Height 1.8 m Weight 113.398 kg Temp Pulse Resp BP Pulse Ox O2 Del Method 97 F L 93 18 134/94 95 10/05/21 07:29 10/05/21 07:29 10/05/21 07:29 10/05/21 07:29 10/05/21 07:29 10/05/21 07:29 Preop Diagnosis: History of colon polyps Operation Date: 10/05/21 08:45 Proposed Procedures p Colonoscopy 24336,Z86.010(Not Applicable) - Roberto Carlos Fair MD Familial anesthetic complications: None Was Beta Woodrow taken within 24 hours: N/A Was Clonidine taken within 24 hours: N/A Social No alcohol and No tobacco Exam alert, oriented x 3 and regular rate & rhythm Airway Submandibular: within normal limits Cervical ROM: within normal limits Mallampati: Class II Pulmonary Long COVID CV/HEM Deep Vein Thrombosis and Hypertension GI Gastroesophageal Reflux Disease Metabolic Morbid Obesity Anesthetic Plan ASA status: 3 Anesthesia: MAC Medications/Allergies Home Medications Medication Instructions Recorded Confirmed Last Taken Type omeprazole 40 mg capsule,delayed 40 mg PO DAILY 03/05/21 10/05/21 10/04/21 History release apixaban 5 mg (74 tabs) tablets in See Rx Instructions PO .COMPLEX 03/13/21 10/05/21 10/03/21 Rx a dose pack (Eliquis DVT-PE Treat #74 ea 30D Start) hydrochlorothiazide 25 mg tablet 12.5 mg PO DAILY 10/03/21 10/05/21 10/04/21 History budesonide-formoterol HFA 160 2 puff inhalation Q12H 30 days 10/04/21 10/05/21 Unknown Rx mcg-4.5 mcg/actuation aerosol #10.2 grams inhaler (Symbicort) fluticasone propionate 50 2 spray intranasal BID 30 days #16 10/04/21 10/05/21 Unknown Rx mcg/actuation nasal grams spray,suspension (Flonase Allergy Relief) losartan 25 mg tablet 25 mg PO DAILY 30 days #30 tabs 10/04/21 10/05/21 Unknown Rx Allergies Allergy/AdvReac Type Severity Reaction Status Date / Time lisinopril Allergy ADR-Cough Verified 10/05/21 07:45 Current Medications Generic Name Dose Route Start Last Admin Trade Name Freq PRN Reason Stop Dose Admin Sodium Chloride 1,000 mls @ 30 mls/hr 10/05/21 07:15 10/05/21 07:35 Sodium Chloride 0.9% IV 10/06/21 07:14 30 mls/hr .Q24H PERLA Administration PFSH Anesthesia Medical History (Updated 10/04/21 @ 14:15 by Louie Whittington M.D) Adenomatous duodenal polyp Bleeding per rectum Colon polyps Esophagitis GERD (gastroesophageal reflux disease) HTN (hypertension) Surgical History History of appendectomy History of back surgery History of nasal surgery Previous back surgery Family History Father IPF (idiopathic pulmonary fibrosis) Grandmother Emphysema lung COPD (chronic obstructive pulmonary disease) Social History Smoking and tobacco status: never smoked Alcohol intake: never Marital status: Data Anesthesia Cardiac Studies: No Data to Display
[2021-10-05] MEDS: dexamethasone 4 mg/mL INJ IVP (10:04)
[2021-10-05] MEDS: ipratropium-albuterol 3 mL Neb INHALATION (10:46)
--- NOTE | 2021-10-05 10:47 | ANE.PACU2 ---
Inpatient post-anesthesia follow up: Airway intact: Yes Vital signs: Temperature 97.5 F Pulse Rate 93 Respiratory Rate 18 Blood Pressure 155/98 Pulse Oximetry 97 Oxygen Delivery Me thod Room Air Oxygen Flow Rate Fraction of Inspir ed Oxygen Hydration adequate: Yes Nausea and vomiting: No Pain level: 1 Mental status: Baseline
[2021-10-05] MEDS: HYDROmorphone 1 mg/mL INJ 1 mL 0.5 MG IVP (10:57)
[2021-10-05] MEDS: benzonatate 100 mg Capsule PO (11:23)
--- NOTE | 2021-10-05 11:56 | ANE.PACU2 ---
Inpatient post-anesthesia follow up: Airway intact: Yes Vital signs: Temperature 97.7 F Pulse Rate 82 Respiratory Rate 18 Blood Pressure 145/82 Pulse Oximetry 98 Oxygen Delivery Me thod Room Air Oxygen Flow Rate Fraction of Inspir ed Oxygen Hydration adequate: Yes Nausea and vomiting: No Pain level: 2 Mental status: Baseline Additional Comments: Quite a bit of coughing post procedure, IV dilaudid, breathing tx and tessalon pearls given.
--- NOTE | 2021-10-05 12:03 | SUR.PHASEII ---
DILAUDID 0.5 WASTED WITH GUILLERMO MACHADO LPN
== END 2021-10-05 11:33 | disposition home or self-care (01) ==
PROVIDERS: PCP Family Medicine; Visit Provider Surgery
PROC: 0DJD8ZZ Inspection of Lower Intestinal Tract, Via Natural or Artificial Opening Endoscopic (ICD-10-PCS; CPT 45378; principal; 2021-10-05 08:45)
DX: Z12.11 Encounter for screening for malignant neoplasm of colon (principal); Z86.010 Personal history of colon polyps; K21.9 Gastro-esophageal reflux disease without esophagitis; I10 Essential (primary) hypertension; D12.2 Benign neoplasm of ascending colon; D12.4 Benign neoplasm of descending colon; D12.5 Benign neoplasm of sigmoid colon
CPT/HCPCS: 45385; 88305; 94640; J1100; J1170; J2001; J2704; J7030

== ENCOUNTER 2021-10-11 10:34 | Outpatient (CLI) | payer OTHER, SELFPAY ==
--- NOTE | 2021-10-11 10:30 | CT_ITS ---
WS: [id number] CT CHEST TECHNIQUE: Noncontrast CT of the chest with coronal and sagittal reformatted images. CLINICAL INFORMATION: Shortness of breath COMPARISON: CTA March 05, 2021 DLP: 2917.[address] scans at [facility] use at least one of these dose optimization techniques: automated e xposure control; mA and/or kV adjustment per patient size (includes targeted exams where dose is matc hed to clinical indication); or iterative reconstruction. FINDINGS:Previous described groundglass peripheral infiltrates have essentially resolved compared to March 05, 2021. Moderate chronic emphysematous changes. Small amount of residual groundglass infilt rate within the lingula and LEFT upper lobe. Chronic appearing interstitial thickening with subpleura l reticular opacities in both lungs. No subpleural honeycombing. No significant bronchiectasis. No fo saar pneumonia or pleural fluid.No significant air trapping on expiratory imaging. Normal caliber thoracic aorta. Mild aortic calcification. Normal caliber descending thoracic aorta. N o mediastinal or hilar lymphadenopathy. No axillary lymphadenopathy. RIGHT adrenal adenoma measuring 12 mm. Stable hepatic cysts. Noncontrast spleen is normal. Noncontras t pancreas is normal. Normal GE junction. No other suspicious findings. CT/CT chest wo con [id number] IMPRESSION: 1. Since the prior examination, the diffuse groundglass infiltrates have essen tially resolved with a few residual ground glass opacities more prominent in th e lingula and LEFT upper lobe. 2. Mild chronic appearing interstitial thickening and subpleural reticular opa cities in both lungs. No evidence of subpleural honeycombing. 3. No focal pneumonia or pleural fluid. 4. No air trapping on expiratory imaging. 5. No other suspicious findings.
--- NOTE | 2021-10-11 14:29 | PFTS_ITS ---
Date of Study:10/11/21 Date of Dictation: MECHANICS: Forced vital capacity (FVC) is . Forced expiratory volume in one second (FEV1) is . FEV1/FVC is . FLOW VOLUME LOOP: . LUNG VOLUMES: Total lung capacity (TLC) is . Residual volume (RV) is . DIFFUSING CAPACITY FOR CARBON MONOXIDE: . INTERPRETATION: The pulmonary function tests are . mechanics and lung volumes. Gas exchange (DLCO) is . MTDD
== END 2021-10-11 10:35 | disposition home or self-care (01) ==
LOC: RAD 10:36
PROVIDERS: PCP Family Medicine; Visit Provider Internal Medicine Critical Care Medicine
DX: R06.02 Shortness of breath (principal); U07.1 COVID-19; J84.10 Pulmonary fibrosis, unspecified
CPT/HCPCS: 71250; 94060; 94726; 94729

== ENCOUNTER 2021-10-11 10:35 | Outpatient (CLI) | payer OTHER, SELFPAY | END 2021-10-11 10:36 | disposition home or self-care (01) | LOC: RT 10:36 | PROVIDERS: PCP Family Medicine; Visit Provider Internal Medicine Critical Care Medicine | DX: U07.1 COVID-19 (principal); J84.10 Pulmonary fibrosis, unspecified | CPT/HCPCS: J7611 ==

== ENCOUNTER → 2021-10-15 08:19 | Outpatient (BNVA) | payer OTHER, SELFPAY | PROVIDERS: PCP Family Medicine; Visit Provider Surgery | DX: Z09 Encounter for follow-up examination after completed treatment for conditions other than malignant neoplasm (principal); Z86.010 Personal history of colon polyps | CPT/HCPCS: 99213 ==

== ENCOUNTER 2021-11-07 07:09 | Outpatient (CLI) | payer OTHER, SELFPAY ==
--- NOTE | 2021-11-07 07:15 | USCV_ITS ---
Sudhir Torres Age: 56 Gender: M : 1965 Exam Date: 11/07/2021 07:31 Ordering Phys: Louie Whittington M.D ([email or web address]) Technologist: KELVIN Exam Location: [facility] [place] Indication: SHORTNESS OF BREATH BP: 133 / 87 HR: 60 Rhythm: Sinus Technical Quality: Adequate MEASUREMENTS (Male / Female) Normal Values 2D ECHO LV Diastolic Diameter PLAX 4.2 cm 4.2 - 5.9 / 3.9 - 5.3 cm LV Systolic Diameter PLAX 2.4 cm IVS Diastolic Thickness 1.5 cm 0.6 - 1.0 / 0.6 - 0.9 cm IVS Systolic Thickness 1.7 cm LVPW Diastolic Thickness 1.4 cm 0.6 - 1.0 / 0.6 - 0.9 cm LVPW Systolic Thickness 2.1 cm LVOT Diameter 2.0 cm LV Ejection Fraction 2D Teich 73.4 % LV Ejection Fraction MOD 2C 76.5 % LV Ejection Fraction 2C AL 78.0 % LA Diameter 3.7 cm LA Width 3.5 cm LA Height 5.5 cm RA Width 3.5 cm RA Height 5.1 cm Aorta at Sinotubular Diameter 2.4 cm M-MODE Aortic Annulus Diameter 3.0 cm LA Ao Ratio MM 1.1 DOPPLER AV Peak Velocity 240.5 cm/s LVOT Peak Velocity 132.0 cm/s AV Area Cont Eq vti 2.2 cm squared AV Area Cont Eq pk 1.8 cm squared MV Peak Velocity 98.0 cm/s MV Area PHT 3.3 cm squared Mitral E to A Ratio 1.2 MV E' Velocity 53.0 cm/s Mitral E to MV E' Ratio 9.4 Mitral E to LV E' Lateral Ratio 8.5 Mitral E to LV E' Septal Ratio 10.7 TR Peak Velocity 237.1 cm/s TR Peak Gradient 22.5 mmHg TR Mean Velocity 188.9 cm/s TR Mean Gradient 15.3 mmHg TR Velocity Time Integral 60.6 cm TV Peak E Velocity 50.0 cm/s Right Atrial Pressure 8.0 mmHg Pulmonary Artery Systolic Pressu 30.5 mmHg PV Peak Velocity 103.0 cm/s RV Acceleration Time 0.1 s RV Ejection Time 0.3 s RV AcT/ET 0.4 FINDINGS Left Ventricle Left ventricle is normal in size. LV systolic function is normal with EF of 55 to 60%. No regional wall motion abnormalities are seen. Right Ventricle Normal in size and function Right Atrium Normal in size Left Atrium Normal in size Mitral Valve Mitral valve is thickened. Mild mitral regurgitation. No significant stenosis. Aortic Valve Aortic valve is thickened. Mild aortic stenosis with aortic valve area 2.2 cm squared with mean gradient of 12.1 mmHg. Mild aortic regurgitation Tricuspid Valve Trace tricuspid regurgitation. Insufficient TR jet to calculate RVSP Pulmonic Valve Not well visualized Pericardium Normal Aorta Normal in size IVC CONCLUSIONS LV systolic function is normal with EF of 55 to 60%. Mild mitral regurgitation. Mild aortic stenosis with mean gradient of 12.4 mmHg across aortic valve. Mild aortic regurgitation Trace tricuspid regurgitation No comparison studies are available Louie Whittington MD (Electronically Signed) Final Date: 21 November 2021 10:01 S
== END 2021-11-07 07:10 | disposition home or self-care (01) ==
PROVIDERS: PCP Family Medicine; Visit Provider Internal Medicine
DX: R06.02 Shortness of breath (principal); I08.3 Combined rheumatic disorders of mitral, aortic and tricuspid valves
CPT/HCPCS: 36415; 82785; 85025; 86003; 93306

== ENCOUNTER → 2021-11-13 15:18 | Outpatient (BNVA) | payer OTHER, SELFPAY | PROVIDERS: PCP Family Medicine; Visit Provider Internal Medicine Critical Care Medicine | DX: R05.3 Chronic cough (principal); J45.909 Unspecified asthma, uncomplicated; R06.02 Shortness of breath; J84.10 Pulmonary fibrosis, unspecified; I82.4Z9 Acute embolism and thrombosis of unspecified deep veins of unspecified distal lower extremity; R49.0 Dysphonia; Z86.16 Personal history of COVID-19 | CPT/HCPCS: 99214 ==

== ENCOUNTER 2021-11-20 07:29 | Outpatient (CLI) | payer OTHER, SELFPAY ==
--- NOTE | 2021-11-20 | ECG_ITS ---
[facility] Test Date: 2021-11-20 Pat Name: Sudhir Torres Department: Room: Gender: Male Director Drug Safety: Doreennisha CrowleyKetty : 1965 Requested By: Louie Whittington Order Number: [id number] Charis MD: Louie Whittington M.D. Interpretive Statements NAME OF STUDY: LEXISCAN SESTAMIBI STRESS TEST INDICATION: [Shortness of Breath, ] Procedure: At the baseline, the blood pressure was 118/88 mmHg with a heart rate of 70 bpm. The electrocardiogram showed normal sinus rhythm, normal axis with normal ST and T's. The Lexiscan was infused over a period of 20 seconds. A total of 0.4 mg of Lexiscan was infused. The stress phase was continued for a total of 5 minutes. Heart rate was at the end of stress phase was 90 bpm and a blood pressure of 131/75 mmHg. The EKG at the peak infusion revealed normal sinus rhythm with no significant ST-T wave changes. Sestamibi was injected 20 seconds after the Lexiscan infusion. Blood pressure at the end of recovery phase was 132/78 mmHg with a heart rate of 87 bpm. Conclusion: 1. Normal EKG response to Lexiscan infusion 2. No Lexiscan induced chest pain or cardiac arrhythmia. 3. Normal blood pressure and heart rate response. 4. Sestamibi/sestamibi perfusion scan pending; see separate report. Electronically Signed On 11-24-2021 21:16:07 CDT by Louie Whittington M.D. [email or web address]
[2021-11-20 07:47] VITALS: BMI 31.7
--- NOTE | 2021-11-20 07:48 | NMCV_ITS ---
NM nolan perf SPECT r/s* [id number] Sudhir Torres Age: 56 Gender: M : 1965 Exam Date: 11/20/2021 08:33 Ordering Phys: Louie Whittington M.D ([email or web address]) Technologist: PAWEL Mares Exam Location: [facility] Indications: SHORTNESS OF BREATH STRESS TEST Please [facility] IMAGE PROTOCOL Rest/Stress 1 Lexiscan Day Radiopharmaceutical Dose (mCi) Administration Site Administered by Rest: Tc-99m 11.0 IV PAWEL Suarez Sestamibi Stress:Tc-99m 32.6 IV PAWEL Suarez Sestamibi Rest: 20-Nov-2021 60 Discovery 630 Stress: 20-Nov-2021 30 Discovery 630 0.4mg Lexiscan. Images obtained in supine and prone position. SPECT RESULTS Technical Quality: Excellent Raw Data Analysis: Normal Image Corrections: No attenuation or motion correction applied Summed Stress Score: 4 Summed Rest Score: 2 Summed Difference Score: 2 PERFUSION FINDINGS There is a small in size, fixed perfusion defect noted in inferolateral wall. This is consistent with small sized prior infarct in left circumflex artery territory. No evidence of ischemia FUNCTIONAL RESULTS (calculated via Gated SPECT) Stress Image LV EF (%): 68 Stress EDV (mL):93 TID: 1.04 Stress ESV (mL):30 FUNCTIONAL FINDINGS: There is normal left ventricular systolic function. IMPRESSIONS 1. 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 LV systolic function is normal Louie Whittington MD (Electronically Signed) Final Date: 20 November 2021 12:28 S
[2021-11-20] MEDS: regadenoson 0.4 Mg/5 ml Syringe IVP (09:18)
[2021-11-20 09:25] VITALS: BP 132/78; PULSE 87
== END 2021-11-20 07:30 | disposition home or self-care (01) ==
LOC: CDL 07:32
PROVIDERS: PCP Family Medicine; Visit Provider Internal Medicine
DX: R06.02 Shortness of breath (principal)
CPT/HCPCS: 78452; 93017; A9500; J2785

== ENCOUNTER → 2022-04-15 12:46 | Outpatient (BNVA) | payer OTHER, SELFPAY | PROVIDERS: PCP Family Medicine; Visit Provider Internal Medicine | DX: I82.4Z9 Acute embolism and thrombosis of unspecified deep veins of unspecified distal lower extremity (principal); R53.83 Other fatigue; U09.9 Post COVID-19 condition, unspecified; R06.09 Other forms of dyspnea; I10 Essential (primary) hypertension | CPT/HCPCS: 99214 ==

== ENCOUNTER → 2022-05-13 08:14 | Outpatient (BNVA) | payer OTHER, SELFPAY | PROVIDERS: PCP Family Medicine; Visit Provider Internal Medicine Pulmonary Disease | DX: J84.10 Pulmonary fibrosis, unspecified (principal); J45.909 Unspecified asthma, uncomplicated; R05.3 Chronic cough; R49.0 Dysphonia; U09.9 Post COVID-19 condition, unspecified; Z86.718 Personal history of other venous thrombosis and embolism; K21.9 Gastro-esophageal reflux disease without esophagitis; Z83.6 Family history of other diseases of the respiratory system | CPT/HCPCS: 99214 ==

== ENCOUNTER 2024-02-11 12:46 | Emergency (ER) | payer OTHER, SELFPAY ==
[2024-02-11 12:49] VITALS: BP 170/95; PULSE 86; RESP 18; TEMP 36.6; O2SAT 98; BMI 20.3
--- NOTE | 2024-02-11 12:54 | XRR_ITS ---
PROCEDURE INFORMATION: Exam: XR Chest Exam date and time: 02/11/2024 1:17 PM Age: 59 years old Clinical indication: Shortness of breath; Additional info: SOB TECHNIQUE: Imaging protocol: Radiologic exam of the chest. Views: 1 view. COMPARISON: CT chest con [id number] 10/11/2021 10:51 AM FINDINGS: Lungs: Low lung volumes. No focal consolidation. Pleural spaces: Unremarkable. No pleural effusion. No pneumothorax. Heart/Mediastinum: Unremarkable. No cardiomegaly. Bones/joints: Unremarkable. XR/XR chest 1V portable [id number] IMPRESSION: No acute cardiopulmonary findings.
--- NOTE | 2024-02-11 13:22 | ED_ITS ---
HPI - URI/Sore Throat 2 General: Chief Complaint: Upper Respiratory Infection Stated Complaint: weakness Time Seen by Provider: 02/11/24 13:11 Source: patient Mode of arrival: ambulatory Limitations: no limitations History of Present Illness: Patient is a 59-year-old male with past medical history of hypertension who presents the emergency department complaining of weakness for the past 4 to 5 days. Patient states he saw the [place] initially was given prednisone and an inhaler for what was suspected to be a viral infection. Patient states he finished his prednisone today, but has not gotten any better. Primarily he is having a cough, decreased appetite, diffuse weakness, shaking, and shortness of breath with exertion. He also reports a history of COVID-pneumonia, states this feels somewhat similar. He has no other cardiac history or history of asthma or COPD, though does comment that he thinks he was told once in the past he may have asthma. Denies any sick contact exposure. Denies any history of CHF. Does not endorse any orthopnea. He is 98% SpO2 at this time, blood pressure mildly elevated though he is partially coughing throughout the entirety of the exam. Denies any production with his cough. He is denying any chest pain at this time but states that every time he contracts to cough he can feel a tickle. No bowel or bladder changes, no abdominal pain. He is denying fevers as well. MD elicited complaint: other (Weakness, cough) Onset (ago): day(s) (4-5) Consistency: constant Severity: moderate Able to tolerate fluids by mouth: Yes Associated symptoms: Deny abdominal pain, chills, chest pain, diarrhea, ear or mastoid pain, fever(s), headache(s), nausea or vomiting Treatments prior to arrival: other (Prednisone, albuterol inhaler) Related Data Home Medications Medication Instructions Recorded Confirmed omeprazole 40 mg capsule,delayed 40 mg PO DAILY 03/05/21 05/13/22 release hydrochlorothiazide 25 mg tablet 12.5 mg PO DAILY 10/03/21 05/13/22 cholecalciferol (vitamin D3) 25 25 mcg PO DAILY 04/15/22 05/13/22 mcg (1,000 unit) capsule losartan 25 mg tablet 50 mg PO DAILY 04/15/22 05/13/22 Previous Rx's Medication Instructions Recorded fluticasone propionate 50 2 spray intranasal BID 30 days #16 10/04/21 mcg/actuation nasal grams spray,suspension (Flonase Allergy Relief) fluticasone 250 mcg-salmeterol 50 1 inh inhalation BID #60 ea 10/10/21 mcg/dose blistr powdr for inhalation (Wixela Inhub) azithromycin 500 mg tablet 500 mg PO DAILY 5 days #5 tabs 02/11/24 benzonatate 200 mg capsule 200 mg PO BID PRN cough #20 caps 02/11/24 Allergies Allergy/AdvReac Type Severity Reaction Status Date / Time lisinopril Allergy ADR-Cough Verified 05/13/22 08:24 Review of Systems 2 General: Reports: 10 or more systems reviewed and unremarkable except in HPI and below Const: Reports: change in appetite, fatigue, malaise and other (Shaking); Denies: fever(s) or chills Eyes: Denies: change in vision ENMT: Denies: throat pain, ear or mastoid pain or nasal discharge Card: Reports: dyspnea on exertion; Denies: chest pain, palpitations, swelling of feet/ankles or lightheadedness Resp: Reports: dyspnea and non-productive cough; Denies: productive cough or wheezing GI: Denies: abdominal pain, nausea, vomiting, diarrhea or constipation : Denies: flank pain, difficulty urinating, dysuria or urinary frequency Musc: Denies: neck pain, back pain or joint pain Skin/Breast: Denies: rash Neuro: Denies: headache(s), numbness in extremities or weakness in extremities PFSH ED 2 PFSH: Medical History HTN (hypertension) Esophagitis Adenomatous duodenal polyp Colon polyps GERD (gastroesophageal reflux disease) Bleeding per rectum Surgical History History of appendectomy Previous back surgery History of back surgery History of nasal surgery Family History Father IPF (idiopathic pulmonary fibrosis) Grandmother Emphysema lung COPD (chronic obstructive pulmonary disease) Social History Smoking and tobacco/nicotine status: never used tobacco/nicotine Alcohol intake: never Substance/Drug Use: never Marital status: Physical Exam 2 Const: COMMON NORMALS: patient oriented x3, no limitations and alert G ENERAL APPEARANCE: cooperative ORIENTATION/CONSCIOUSNESS: Yes awake OTHER: No acute respiratory distress noted though he does cough throughout the entirety of the exam. Occasionally endorses mild tremors diffusely HENMT: COMMON NORMALS: normocephalic, atraumatic, Normal external nose present, Normal nasal mucous membranes and turbinates present, moist oral mucous membranes and oropharynx normal HEAD & SCALP: normocephalic and atraumatic NOSE: Normal external nose present and Normal nasal mucous membranes and turbinates present Eye: COMMON NORMALS: EOMs intact bilaterally and conjunctivae normal C ONJUNCTIVA: Yes conjunctivae normal Neck/C-Spine: COMMON NORMALS: full ROM and no lymphadenopathy Resp: COMMON NORMALS: normal respiratory effort, No retractions, No use of accessory muscles and clear to auscultation bilaterally EFFORT & INSPECTION: Yes Actively coughing non-productive and hacking and No audible wheezes A USCULTATION: clear to auscultation bilaterally Cardio: COMMON NORMALS: regular rate, regular rhythm, S1 normal heart sound present, S2 normal heart sound present, No gallops present (Cardio), No clicks present (Cardio), No murmurs present (Cardio), No rub (Cardio) and Peripheral pulses 2+ throughout RATE: regular rate RHYTHM: regular rhythm HEART SOUNDS: S1 normal heart sound present and S2 normal heart sound present P ERIPHERAL PULSES: Peripheral pulses 2+ throughout GI: COMMON NORMALS: Soft to palpation and non-tender PALPATION: Yes Soft to palpation Extremity: COMMON NORMALS: normal to inspection, full ROM, capillary refill normal and no pedal edema Neuro: COMMON NORMALS: patient oriented x3, moves all extremities, no focal motor deficits and no sensory deficits noted SENSORIUM/ORIENTATION: Yes alert Skin: COMMON NORMALS: no rashes or lesions noted GENERAL SKIN EXAM: no rashes or lesions noted Course 2 Vital Signs: Vital signs: Vital Signs Temperature 98 F 02/11/24 12:49 Pulse Rate 78 02/11/24 14:11 Respiratory Rate 20 H 02/11/24 14:11 Blood Pressure 129/75 02/11/24 14:05 Pulse Oximetry 97 02/11/24 14:11 Oxygen Delivery Me thod Room Air 02/11/24 14:11 MDM - URI/Sore Throat Medical Decision Making Patient recently finished prednisone for reactive airway disease he states he was diagnosed with at [place], also likely a viral illness. Had not been getting better, presented with worsening cough and shortness of breath on exertion. His lungs were clear on examination, was actively coughing through the entirety of my examination, nonproductive. SpO2 has been above 97% throughout his ED stay, as well as other vitals being unremarkable. CBC CMP were negative. BNP also was negative, and he did not seem fluid overloaded on physical exam. He had no pertinent cardiac history or other past medical history that was concerning. He states he was only treated with steroids, and his chest or x-ray being normal this could pose as an atypical respiratory infection that we will try a Z-Thomas for. It seems that his cough is the most concerning symptom of his and we will try to treat this as well with [id number] antitussives. Patient agrees with this plan, is requesting a work note. Patient also given strict return precautions, he agrees with this and does state he feels somewhat better after receiving DuoNeb therapy here. Lab Data 02/11/24 13:44 02/11/24 13:44 Radiology Impressions Chest X-Ray 02/11/24 12:54 IMPRESSION: No acute cardiopulmonary findings. Laboratory Results WBC 10.69 10^3/uL (3.29-11.43) 02/11/24 13:44 Corrected WBC Cancelled 02/11/24 13:12 RBC 5.19 10^6/uL (3.85-5.65) 02/11/24 13:44 Hgb 15.40 g/dL (11.27-16.99) 02/11/24 13:44 Hct 47.6 % (37-53) 02/11/24 13:44 MCV 91.7 fl (82-101) 02/11/24 13:44 MCH 29.7 pg (27-33) 02/11/24 13:44 MCHC 32.4 g/dL (30-55) 02/11/24 13:44 RDW 13.6 % (12.1-15.1) 02/11/24 13:44 Plt Count 271 10^3/cmm (157-399) 02/11/24 13:44 MPV 9.4 fL (7.4-10.4) 02/11/24 13:44 Gran % Cancelled 02/11/24 13:12 Neut % (Auto) 77.3 % 02/11/24 13:44 Lymph % (Auto) 12.7 % 02/11/24 13:44 Mclean % (Auto) 6.2 % 02/11/24 13:44 Eos % (Auto) 0.5 % 02/11/24 13:44 Baso % (Auto) 0.7 % 02/11/24 13:44 Neut # (Auto) 8.26 10^3/uL (1.8-7.7) H 02/11/24 13:44 Lymph # (Auto) 1.4 10^3/uL (0.8-4.8) 02/11/24 13:44 Mclean # (Auto) 0.7 10^3/uL (0.2-0.9) 02/11/24 13:44 Eos # (Auto) 0.1 10^3/uL (0.0-0.8) 02/11/24 13:44 Baso # (Auto) 0.1 10^3/uL (0.0-0.1) 02/11/24 13:44 Absolute Gran (auto) Cancelled 02/11/24 13:12 Nucleated RBC % (auto) 0 % 02/11/24 13:44 Nucleated RBCs # 0.0 /100WBC 02/11/24 13:44 Sodium 138 mmol/L (136-145) 02/11/24 13:44 Potassium 4.1 mmol/L (3.5-5.1) 02/11/24 13:44 Chloride 99 mmol/L (98-107) 02/11/24 13:44 Carbon Dioxide 25 mmol/L (22-29) 02/11/24 13:44 Anion Gap 18.1 (5-19) 02/11/24 13:44 BUN 18 mg/dL (8-23) 02/11/24 13:44 Creatinine 1.1 mg/dL (0.7-1.2) 02/11/24 13:44 GFR Calculation 68.3 mL/min (90-130) L 02/11/24 13:44 Glucose 104 mg/dL (65-115) 02/11/24 13:44 Calculated Osmolality 288 mOsm/kg (285-295) 02/11/24 13:44 Calcium 9.4 mg/dL (8.5-10.5) 02/11/24 13:44 Total Bilirubin 0.6 mg/dL (0.15-1.2) 02/11/24 13:44 AST 13 U/L (0-40) 02/11/24 13:44 ALT 13 U/L (0-41) 02/11/24 13:44 Alkaline Phosphatase 68 U/L (40-130) 02/11/24 13:44 NT-Pro-B Natriuret Pep 93 pg/mL (0-125) 02/11/24 13:44 Total Protein 6.7 g/dL (6.6-8.7) 02/11/24 13:44 Albumin 4.1 g/dL (3.5-5.2) 02/11/24 13:44 Globulin 2.6 g/dL (1.3-4.6) 02/11/24 13:44 Coronavirus (PCR) Negative (Negative) 02/11/24 13:20 Influenza A (PCR) Negative (Negative) 02/11/24 13:20 Influenza Type B (PCR) Negative (Negative) 02/11/24 13:20 RSV (PCR) Negative (Negative) 02/11/24 13:20 All radiology interpretation(s) finalized by discharge Discharge Plan Discharge Patient Disposition: Home Clinical Impression: Acute bronchitis Qualifiers: Bronchitis organism: unspecified organism Qualified Code(s): J20.9 - Acute bronchitis, unspecified Condition: Stable Prescriptions: New azithromycin 500 mg tablet 500 mg PO DAILY 5 Days Qty: 5 0RF benzonatate 200 mg capsule 200 mg PO BID PRN (Reason: cough) Qty: 20 0RF No Action fluticasone propionate [Flonase Allergy Relief] 50 mcg/actuation spray,suspension 2 spray intranasal BID 30 Days Qty: 16 3RF Rx Instructions: administer into each nostril cholecalciferol (vitamin D3) 25 mcg (1,000 unit) capsule 25 mcg PO DAILY losartan 25 mg tablet 50 mg PO DAILY fluticasone propion-salmeterol [Wixela Inhub] 250-50 mcg/dose blister with device 1 inh inhalation BID Qty: 60 5RF omeprazole 40 mg capsule,delayed release(DR/EC) 40 mg PO DAILY hydrochlorothiazide 25 mg Tablet 12.5 mg PO DAILY Discharge Orders: Discharge ED (Routine); Ordered 02/11/24 Ordered By: Jorge Kerns Referrals: Chelsie Santillan MD [Primary Care Provider] - Patient Instructions: Acute Bronchitis (ED) Activity Restrictions/Additional Instructions: Take antibiotics as prescribed. Tessalon Perles for your cough. Continue using albuterol inhaler. Monitor your condition closely and return with any new or worsening. Follow-up with primary care. See attached patient instructions for further education. Stand Alone Forms: Work/School Release Coding Level of Care Code ED Engineering Drawings Checker for Ej Ortega
[2024-02-11] MEDS: benzonatate 100 mg Capsule 200 MG PO (13:33)
[2024-02-11 13:53] LABS: Basophils # 0.1 10^3/uL (0.0-0.1); Basophils % 0.7 %; Eosinophils # 0.1 10^3/uL (0.0-0.8); Eosinophils % 0.5 %; Hematocrit 47.6 % (37-53); Lymphocytes # 1.4 10^3/uL (0.8-4.8); Lymphocytes % 12.7 %; Mean Corpuscular HGB Conc 32.4 g/dL (30-55); Mean Corpuscular Hemoglobin 29.7 pg (27-33); Mean Corpuscular Volume 91.7 fl (82-101); Mean Platelet Volume 9.4 fL (7.4-10.4); Monocytes # 0.7 10^3/uL (0.2-0.9); Monocytes % 6.2 %; Neutrophils # 8.26 10^3/uL (1.8-7.7); Neutrophils % 77.3 %; Nucleated Red Blood Cells % 0 %; Platelet Count 271 10^3/cmm (157-399); Red Blood Count 5.19 10^6/uL (3.85-5.65); Red Cell Distribution Width 13.6 % (12.1-15.1); White Blood Count 10.69 10^3/uL (3.29-11.43)
[2024-02-11 14:05] VITALS: BP 129/75; PULSE 77; O2SAT 95
[2024-02-11] MEDS: ipratropium-albuterol 3 mL Neb INHALATION (14:10)
[2024-02-11 14:11] VITALS: PULSE 78; RESP 20; O2SAT 97
[2024-02-11 14:19] LABS: Covid PCR NEGATIVE (Negative); Influenza A NEGATIVE (Negative); Influenza B NEGATIVE (Negative); Respiratory Syncytial Virus Ce NEGATIVE (Negative)
[2024-02-11 14:19] LABS: Alanine Aminotransferase 13 U/L (0-41); Albumin Level 4.1 g/dL (3.5-5.2); Alkaline Phosphatase 68 U/L (40-130); Anion Gap 18.1 (5-19); Aspartate Amino Transferase 13 U/L (0-40); Blood Urea Nitrogen 18 mg/dL (8-23); Calcium 9.4 mg/dL (8.5-10.5); Carbon Dioxide 25 mmol/L (22-29); Chloride 99 mmol/L (98-107); Creatinine Clr Calc Pharmacy 74.5208; Globulin 2.6 g/dL (1.3-4.6); Glomerular Filtration Rate 68.3 mL/min (90-130); Glucose 104 mg/dL (65-115); NT Pro B Type Natriuretic Pept 93 pg/mL (0-125); Osmolality Calculated 288 mOsm/kg (285-295); Potassium 4.1 mmol/L (3.5-5.1); Sodium 138 mmol/L (136-145); Total Bilirubin 0.6 mg/dL (0.15-1.2); Total Protein 6.7 g/dL (6.6-8.7)
[2024-02-11 14:34] VITALS: BP 129/75; PULSE 85; O2SAT 97
== END 2024-02-11 14:35 | disposition home or self-care (01) ==
PROVIDERS: Emergency Medicine; Emergency Provider Physician Assistant; PCP Family Medicine
DX: J20.9 Acute bronchitis, unspecified (principal); Z11.52 Encounter for screening for COVID-19; I10 Essential (primary) hypertension
CPT/HCPCS: 36415; 71045; 80053; 83880; 85025; 87637; 94640; 99284

== ENCOUNTER 2024-02-25 08:37 | Emergency (ER) | payer OTHER, SELFPAY ==
[2024-02-25] VITALS (33 sets, daily range): BP systolic 128–146; BP diastolic 61–100; PULSE 68–101; RESP 12–38; TEMP 37.2; O2SAT 90–97; BMI 35.4
--- NOTE | 2024-02-25 09:27 | XR_ITS ---
WS: [id number] Portable AP upright chest, 02/25/2024 Clinical Data: cough Comparison: Portable chest, 02/11/2024 Findings: No nodules, masses or effusions are seen. The heart is normal. The pulmonary vascularity is not increased. No pneumonia or pneumothorax is seen. Monitor leads are on the shoulders. XR/XR chest 1V portable [id number] Impression: Negative chest.
[2024-02-25] MEDS: ibuprofen 600 mg Tablet PO (10:00)
[2024-02-25] MEDS: sodium chloride 0.9% 1,000 ML 999 ML IV (10:01)
[2024-02-25 10:08] LABS: Basophils # 0.1 10^3/uL (0.0-0.1); Basophils % 0.7 %; Eosinophils # 0.1 10^3/uL (0.0-0.8); Eosinophils % 1.6 %; Hematocrit 49.2 % (37-53); Lymphocytes # 1.4 10^3/uL (0.8-4.8); Lymphocytes % 17.1 %; Mean Corpuscular HGB Conc 33.9 g/dL (30-55); Mean Corpuscular Hemoglobin 30.5 pg (27-33); Mean Corpuscular Volume 89.9 fl (82-101); Mean Platelet Volume 9.2 fL (7.4-10.4); Monocytes # 0.6 10^3/uL (0.2-0.9); Nucleated Red Blood Cells % 0 %; Platelet Count 246 10^3/cmm (157-399); Red Blood Count 5.47 10^6/uL (3.85-5.65); Red Cell Distribution Width 13.7 % (12.1-15.1); White Blood Count 8.09 10^3/uL (3.29-11.43)
--- NOTE | 2024-02-25 10:20 | ED_ITS ---
HPI - URI/Sore Throat 2 General: Chief Complaint: Upper Respiratory Infection Stated Complaint: dizzy, headache,fever Time Seen by Provider: 02/25/24 09:27 Source: patient Mode of arrival: ambulatory Limitations: no limitations History of Present Illness: 59-year-old male states has had cough co ngestion and just not feeling well over the last 2 weeks. States been on antibiotics has had no improvement states had a slight tremor as well he denies any pain he denies any vomiting or diarrhea has had some chills denies any high fevers. Associated symptoms: Reports chills; Deny abdominal pain, chest pain, diarrhea, fever(s), headache(s), nausea or vomiting Related Data Home Medications Medication Instructions Recorded Confirmed omeprazole 40 mg capsule,delayed 40 mg PO DAILY 03/05/21 02/25/24 release hydrochlorothiazide 25 mg tablet 12.5 mg PO DAILY 10/03/21 02/25/24 cholecalciferol (vitamin D3) 25 25 mcg PO DAILY 04/15/22 02/25/24 mcg (1,000 unit) capsule acetaminophen 500 mg tablet 1,000 mg PO Q6H PRN pain or fever 02/25/24 02/25/24 (Tylenol Extra Strength) albuterol sulfate 90 mcg/actuation 2 puff inhalation QID PRN 02/25/24 02/25/24 aerosol inhaler Shortness Of Breath Or Wheezing ascorbic acid (vitamin C) 500 mg 1,000 mg PO BID 02/25/24 02/25/24 chewable tablet (Vitamin C) losartan 100 mg tablet 100 mg PO DAILY 02/25/24 02/25/24 pseudoephedrine-guaifenesin ER 120 1 tab PO Q12H PRN Cough 02/25/24 02/25/24 mg-1,200 mg tab,extend release 12hr (Mucinex D Maximum Strength) zinc acetate 50 mg (zinc) capsule 50 mg PO DAILY 02/25/24 02/25/24 Previous Rx's Medication Instructions Recorded fluticasone propionate 50 2 spray intranasal BID 30 days #16 10/04/21 mcg/actuation nasal grams spray,suspension (Flonase Allergy Relief) fluticasone 250 mcg-salmeterol 50 1 inh inhalation BID #60 ea 10/10/21 mcg/dose blistr powdr for inhalation (Wixela Inhub) benzonatate 200 mg capsule 200 mg PO BID PRN cough #20 caps 02/11/24 Allergies Allergy/AdvReac Type Severity Reaction Status Date / Time lisinopril Allergy ADR-Cough Verified 05/13/22 08:24 Review of Systems 2 Const: Reports: chills; Denies: fever(s), body aches or change in appetite ENMT: Denies: throat pain or dental pain Card: Denies: chest pain Resp: Reports: dyspnea and non-productive cough GI: Denies: abdominal pain, nausea, vomiting or diarrhea Musc: Denies: neck pain or back pain Skin/Breast: Denies: rash Neuro: Denies: headache(s) PFSH ED 2 PFSH: Medical History HTN (hypertension) Esophagitis Adenomatous duodenal polyp Colon polyps GERD (gastroesophageal reflux disease) Bleeding per rectum Surgical History History of appendectomy Previous back surgery History of back surgery History of nasal surgery Family History Father IPF (idiopathic pulmonary fibrosis) Grandmother Emphysema lung COPD (chronic obstructive pulmonary disease) Social History Smoking and tobacco/nicotine status: never used tobacco/nicotine Alcohol intake: never Substance/Drug Use: never Marital status: Physical Exam 2 Const: COMMON NORMALS: no acute distress, patient oriented x3 and healthy appearing HENMT: COMMON NORMALS: normocephalic and atraumatic HEAD & SCALP: n ormocephalic and atraumatic Eye: COMMON NORMALS: Equal, round and reactive pupils present and EOMs intact bilaterally PUPIL: Yes Equal, round and reactive pupils present Neck/C-Spine: COMMON NORMALS: full ROM and supple Chest: COMMONS NORMALS: normal inspection of the chest Resp: COMMON NORMALS: normal respiratory effort, No retractions, No use of accessory muscles and clear to auscultation bilaterally AUSCULTATION: clear to auscultation bilaterally Cardio: COMMON NORMALS: regular rate, regular rhythm and No murmurs present (Cardio) RATE: regular rate RHYTHM: regular rhythm GI: COMMON NORMALS: Normal to inspection, nondistended, normoactive bowel sounds present, Soft to palpation, non-tender and no masses PALPATION: Yes Soft to palpation Extremity: COMMON NORMALS: normal to inspection and full ROM Neuro: COMMON NORMALS: patient oriented x3, moves all extremities and no focal motor deficits Psych: COMMON NORMALS: mental status grossly normal, Normal thought process present and cooperative THOUGHT PROCESS: Normal thought process present Skin: COMMON NORMALS: no rashes or lesions noted and no wounds GENERAL SKIN EXAM: no rashes or lesions noted Course 2 Vital Signs: Vital signs: Vital Signs Temperature 99.0 F 02/25/24 09:16 Pulse Rate 69 02/25/24 11:05 Respiratory Rate 20 H 02/25/24 11:05 Blood Pressure 140/81 02/25/24 11:05 Pulse Oximetry 94 02/25/24 11:05 Oxygen Delivery Me thod Room Air 02/25/24 10:25 MDM - URI/Sore Throat Medical Decision Making Patient presents here with cough congestion likely upper respiratory infection x-ray shows no pneumonia his blood works normal no chest pain no signs of ACS no signs of pulm embolism his oxygen here has been normal as well he stable for discharge follow-up with PCP return if worsening. Medical Records I reviewed the patient's medical records. Lab Data I reviewed the patient's lab results. 02/25/24 09:55 02/25/24 09:55 Radiology Impressions Chest X-Ray 02/25/24 09:27 Impression: Negative chest. Laboratory Results WBC 8.09 10^3/uL (3.29-11.43) 02/25/24 09:55 RBC 5.47 10^6/uL (3.85-5.65) 02/25/24 09:55 Hgb 16.70 g/dL (11.27-16.99) 02/25/24 09:55 Hct 49.2 % (37-53) 02/25/24 09:55 MCV 89.9 fl (82-101) 02/25/24 09:55 MCH 30.5 pg (27-33) 02/25/24 09:55 MCHC 33.9 g/dL (30-55) 02/25/24 09:55 RDW 13.7 % (12.1-15.1) 02/25/24 09:55 Plt Count 246 10^3/cmm (157-399) 02/25/24 09:55 MPV 9.2 fL (7.4-10.4) 02/25/24 09:55 Neut % (Auto) 73.0 % 02/25/24 09:55 Lymph % (Auto) 17.1 % 02/25/24 09:55 Lipscomb % (Auto) 7.0 % 02/25/24 09:55 Eos % (Auto) 1.6 % 02/25/24 09:55 Baso % (Auto) 0.7 % 02/25/24 09:55 Neut # (Auto) 5.90 10^3/uL (1.8-7.7) 02/25/24 09:55 Lymph # (Auto) 1.4 10^3/uL (0.8-4.8) 02/25/24 09:55 Lipscomb # (Auto) 0.6 10^3/uL (0.2-0.9) 02/25/24 09:55 Eos # (Auto) 0.1 10^3/uL (0.0-0.8) 02/25/24 09:55 Baso # (Auto) 0.1 10^3/uL (0.0-0.1) 02/25/24 09:55 Nucleated RBC % (auto) 0 % 02/25/24 09:55 Nucleated RBCs # 0.0 /100WBC 02/25/24 09:55 Sodium 136 mmol/L (136-145) 02/25/24 09:55 Potassium 4.2 mmol/L (3.5-5.1) 02/25/24 09:55 Chloride 96 mmol/L (98-107) L 02/25/24 09:55 Carbon Dioxide 25 mmol/L (22-29) 02/25/24 09:55 Anion Gap 19.2 (5-19) H 02/25/24 09:55 BUN 13 mg/dL (8-23) 02/25/24 09:55 Creatinine 0.9 mg/dL (0.7-1.2) 02/25/24 09:55 GFR Calculation 86.1 mL/min (90-130) L 02/25/24 09:55 Glucose 115 mg/dL (65-115) 02/25/24 09:55 Calculated Osmolality 283 mOsm/kg (285-295) L 02/25/24 09:55 Calcium 9.6 mg/dL (8.5-10.5) 02/25/24 09:55 Total Bilirubin 0.8 mg/dL (0.15-1.2) 02/25/24 09:55 AST 18 U/L (0-40) 02/25/24 09:55 ALT 18 U/L (0-41) 02/25/24 09:55 Alkaline Phosphatase 78 U/L (40-130) 02/25/24 09:55 Total Protein 7.4 g/dL (6.6-8.7) 02/25/24 09:55 Albumin 4.6 g/dL (3.5-5.2) 02/25/24 09:55 Globulin 2.8 g/dL (1.3-4.6) 02/25/24 09:55 All radiology interpretation(s) finalized by discharge Discharge Plan Discharge Patient Disposition: Home Clinical Impression: Upper respiratory infection Condition: Stable Prescriptions: No Action fluticasone propionate [Flonase Allergy Relief] 50 mcg/actuation spray,suspension 2 spray intranasal BID 30 Days Qty: 16 3RF Rx Instructions: administer into each nostril cholecalciferol (vitamin D3) 25 mcg (1,000 unit) capsule 25 mcg PO DAILY fluticasone propion-salmeterol [Wixela Inhub] 250-50 mcg/dose blister with device 1 inh inhalation BID Qty: 60 5RF omeprazole 40 mg capsule,delayed release(DR/EC) 40 mg PO DAILY hydrochlorothiazide 25 mg Tablet 12.5 mg PO DAILY benzonatate 200 mg capsule 200 mg PO BID PRN (Reason: cough) Qty: 20 0RF zinc acetate 50 mg (zinc) Capsule 50 mg PO DAILY acetaminophen [Tylenol Extra Strength] 500 mg Tablet 1,000 mg PO Q6H PRN (Reason: pain or fever ) pseudoephedrine-guaifenesin [Mucinex D Maximum Strength] 120-1,200 mg Tablet Extended Release 12 Hr 1 tab PO Q12H PRN (Reason: Cough) ascorbic acid (vitamin C) [Vitamin C] 500 mg Tablet,Chewable 1,000 mg PO BID albuterol sulfate 90 mcg/actuation HFA aerosol inhaler 2 puff inhalation QID PRN (Reason: Shortness Of Breath Or Wheezing) losartan 100 mg Tablet 100 mg PO DAILY Discharge Orders: Discharge ED (Routine); Ordered 02/25/24 Ordered By: Chana Dhaliwal Referrals: Chelsie Santillan MD [Primary Care Provider] - 4-7 days Discharge Diet: Advance as tolerated Discharge Activity: Use walker/crutches as instructed Patient Instructions: Upper Respiratory Infection (ED) Coding Level of Care Code ED [employer] Specialist for jE Ortega
[2024-02-25 10:23] LABS: Alanine Aminotransferase 18 U/L (0-41); Albumin Level 4.6 g/dL (3.5-5.2); Alkaline Phosphatase 78 U/L (40-130); Anion Gap 19.2 (5-19); Aspartate Amino Transferase 18 U/L (0-40); Blood Urea Nitrogen 13 mg/dL (8-23); Calcium 9.6 mg/dL (8.5-10.5); Carbon Dioxide 25 mmol/L (22-29); Chloride 96 mmol/L (98-107); Creatinine Clr Calc Pharmacy 112.6726; Globulin 2.8 g/dL (1.3-4.6); Glomerular Filtration Rate 86.1 mL/min (90-130); Glucose 115 mg/dL (65-115); Osmolality Calculated 283 mOsm/kg (285-295); Potassium 4.2 mmol/L (3.5-5.1); Sodium 136 mmol/L (136-145); Total Bilirubin 0.8 mg/dL (0.15-1.2); Total Protein 7.4 g/dL (6.6-8.7)
[2024-02-25 12:13] LABS: Adenovirus Not Detected (NOT DETECT); Chlamydia Pneumoniae Not Detected (NOT DETECT); Coronavirus 229E,HKU1,NL63,OC4 Not Detected (NOT DETECT); Human Metapneumovirus Not Detected (NOT DETECT); Human Rhinovirus/Enterovirus Detected (NOT DETECT); Influenza A Not Detected (NOT DETECT); Influenza A H1 Not Detected (NOT DETECT); Influenza A H1-2009 Not Detected (NOT DETECT); Influenza A H3 Not Detected (NOT DETECT); Influenza B Not Detected (NOT DETECT); Mycoplasma Pneumoniae Not Detected (NOT DETECT); Parainfluenza Virus Type 1 Not Detected (NOT DETECT); Parainfluenza Virus Type 2 Not Detected (NOT DETECT); Parainfluenza Virus Type 3 Not Detected (NOT DETECT); Parainfluenza Virus Type 4 Not Detected (NOT DETECT); Respiratory Syncytial Virus A Not Detected (NOT DETECT); Respiratory Syncytial Virus B Not Detected (NOT DETECT); SARS-COV-2 Not Detected (NOT DETECT)
== END 2024-02-25 12:04 | disposition home or self-care (01) ==
PROVIDERS: Emergency Provider Emergency Medicine; PCP Family Medicine
DX: J06.9 Acute upper respiratory infection, unspecified (principal); I10 Essential (primary) hypertension
CPT/HCPCS: 36415; 71045; 80053; 85025; 87486; 87581; 87633; 96360; 96361; 99284; J7030

== ENCOUNTER 2024-07-08 15:13 | Outpatient (CLI) | payer OTHER, SELFPAY ==
--- NOTE | 2024-07-08 15:16 | CTR_ITS ---
PROCEDURE INFORMATION: Exam: CT Chest Without Contrast; Diagnostic Exam date and time: 07/08/2024 3:32 PM Age: 59 years old Clinical indication: Cough and dyspnea; High resolution chest, chronic cough with dyspnea; Additional info: Chronic cough/dyspnea TECHNIQUE: Imaging protocol: Diagnostic computed tomography of the chest without contrast. Radiation optimization: All CT scans at this facility use at least one of these dose optimization techniques: automated exposure control; mA and/or kV adjustment per patient size (includes targeted exams where dose is matched to clinical indication); or iterative reconstruction. COMPARISON: CT chest [facility] [id number] 10/11/2021 10:51 AM RADIATION DOSE METRICS: Total DLP (mGy-cm): 1817.37 FINDINGS: Lungs: Unchanged small amount of scarring scattered in the lungs. Otherwise, unremarkable. Pleural spaces: Unremarkable. No pneumothorax. No pleural effusion. Heart: Unremarkable. No cardiomegaly. No pericardial effusion. Coronary arteries: Unchanged tiny amount of coronary artery calcification. Lymph nodes: Unremarkable. No enlarged lymph nodes. Vasculature: Unremarkable. No aortic aneurysm. Liver: A few small unchanged liver cysts need no follow-up. Gallbladder and biliary ducts: Unchanged cholelithiasis and gallbladder wall thickening. Adrenal glands: Unchanged 1.5 cm benign right adrenal adenoma. Intestine: Unchanged diffuse fatty infiltration of the colonic wall. This is characteristic of chronic colonic inflammation. Bones/joints: Unchanged very mild scoliosis. Unchanged minimal and mild multilevel spondylosis. Otherwise, unremarkable. Soft tissues: Unremarkable visualized body wall. Otherwise, unremarkable soft tissues. Other findings: Otherwise, unremarkable visualized upper abdominal structures. CT/CT chest [facility] [id number] IMPRESSION: 1. Unchanged cholelithiasis and gallbladder wall thickening. Cholecystitis, possibly chronic, should be considered. 2. No other acute findings. 3. Additional details as above. Unchanged.
== END 2024-07-08 15:14 | disposition home or self-care (01) ==
PROVIDERS: PCP Family Medicine; Visit Provider Student in an Organized Health Care Education/Training Program
DX: R05.3 Chronic cough (principal); R06.00 Dyspnea, unspecified; Z83.6 Family history of other diseases of the respiratory system; J84.9 Interstitial pulmonary disease, unspecified; J98.4 Other disorders of lung; K76.89 Other specified diseases of liver; K80.20 Calculus of gallbladder without cholecystitis without obstruction; R93.3 Abnormal findings on diagnostic imaging of other parts of digestive tract; D35.01 Benign neoplasm of right adrenal gland; K63.89 Other specified diseases of intestine; M41.9 Scoliosis, unspecified; M47.9 Spondylosis, unspecified
CPT/HCPCS: 71250